=== PATIENT | male | born 2000 | race Caucasian/White ===

== ENCOUNTER 2023-09-22 07:10 | Emergency (ER) | payer OTHER, SELFPAY ==
[2023-09-22 07:14] VITALS: BP 119/80; BP 143/97; PULSE 105; PULSE 98; RESP 18; TEMP 36.7; O2SAT 100; O2SAT 99; BMI 26.8
[2023-09-22 07:22] LABS: Glucose, Whole Blood 447 mg/dL (60-115)
[2023-09-22 07:23] VITALS: BP 143/97; PULSE 98; RESP 18; TEMP 36.7; O2SAT 100
--- NOTE | 2023-09-22 07:25 | ED_ITS ---
HPI - General Adult General Chief complaint: General Medical Stated complaint: Hypoglycemia Time Seen by Provider: 09/22/23 07:13 Source: patient and old records reviewed Mode of arrival: ambulatory Limitations: no limitations History of Present Illness ED Provider: SHERIE RODAS narrative: 23 yo male with PMH of IDDM diagnosed age 7 still has glucometer notes that past few weeks ran out of his short acting sliding scale insulin and his long acting lantus 40 units at night due to insurance issues. He hasn't checked his sugar either. He has no complaints at this time. He has no n/v. He came after BS was checked yesterday and it was 500. He notes the pharmacy said his insulin would be ready Monday complaint: hyperglycemia Onset (ago): week(s) (3) Radiation: non-radiation Severity: moderate Relieving factors: none Exacerbating factors: eating Associated symptoms: denies other symptoms Treatments prior to arrival: none Related Data Previous Rx's ?Medication ?Instructions ?Recorded insulin glargine 100 unit/mL 40 unit (0.4 mL) subcut DAILY #10 09/22/23 subcutaneous solution (Lantus mL U-100 Insulin) Allergies Allergy/AdvReac Type Severity Reaction Status Date / Time shellfish derived Allergy Severe Anaphylaxis Verified 09/22/23 07:23 Review of Systems 2 Review of Systems: Constitutional : No Fever, No Chills, No Fatigue ENT/Mouth : No sore throat, No Rhinorrhea Eyes: No Eye Pain, No Swelling, No Redness Cardiovascular : No Chest Pain, No SOB, No Dyspnea on Exertion Respiratory : No Cough, No Sputum Gastrointestinal : No Nausea, No Vomiting, No Diarrhea, No abdominal Pain Genitourinary : No Dysuria, No Urinary Frequency, Musculoskeletal : No joint pain, No Myalgias, No Joint Swelling Skin : No Skin Lesions, No rash Neuro : No Weakness, No Numbness, No Dizziness, no Headache Psych : No Anxiety/Panic, No Depression Endocrine : pos Polyuria, pos Polydipsia All other systems reviewed and are negative [facility] Past Medical History Attestation statement: The following information was validated with the patient. Source: old records reviewed Medical History Type 1 diabetes Social History Social History (Updated 09/22/23 @ 07:29 by Jada Espinal DO) Patient Tobacco Use Status: Never used Tobacco Advance Directives: No Advance Directives Information Provided: No Do you have a plan to hurt others: No Plan Physical Exam ED Vital Signs: Vital Signs - 24 hr 09/22/23 07:14 09/22/23 07:23 Temperature 98.0 F 98.0 F Pulse Rate 98 98 Respiratory Rate 18 18 Blood Pressure 143/97 H 143/97 H Pulse Oximetry 100 100 Oxygen Delivery Method Room Air Room Air BMI result Body Mass Index 26.8 Appearance: Alert. Oriented X3. No acute distress. Eyes: Pupils equal, round and reactive to light. ENT: Pharynx normal. Neck: Normal inspection. Neck supple. CVS: Normal heart rate and rhythm. Pulses normal. Respiratory: No respiratory distress. Breath sounds normal. Abdomen: Soft and nontender. Skin: Skin warm and dry. Normal skin color. Normal skin turgor. Extremities: No lower extremity edema. No calf ttp Neuro: Oriented X 3. No motor deficit. No sensory deficit. Medications Administered Discontinued Medications Generic Name Dose Route Start Last Admin Trade Name Charbelq PRN Reason Stop Dose Admin Lactated Ringer's 1,000 mls @ 999 mls/hr 09/22/23 07:20 09/22/23 07:44 Lr IV 09/22/23 08:20 999 mls/hr .Q1H1M ONE Administration Insulin Human Regular 10 unit 09/22/23 07:20 09/22/23 07:50 Insulin Regular, Human 100 Unit/Ml 10 Ml Vial IVPUSH 09/22/23 07:21 10 unit ONCE ONE Administration Medical Decision Making Medical Decision Making [facility] Narrative: 23 yo male with PMH of IDDM dx at age 7 non compliant with insulin SS and long acting x 3 weeks at this time will need basic labs and start on IV insulin and then discussed he can go to [facility] to get insulin until he gets his script he looks non toxic low susp for DKA. Differential Diagnosis Differential Diagnoses: The differential diagnosis associated with the presentation includes hyperglycemia Admission/Observation Consideration of admission/observation: Escalation of care including admission/observation considered BS down not in DKA stable for DC Lab Data [facility] Lab Attestation statement: I reviewed the patient's lab results. 09/22/23 07:30 09/22/23 07:30 Labs: Lab Results 07/12/24 07/12/24 07/12/24 Range/Units 07:19 07:30 07:32 WBC 8.1 (4.8-10.8) X10*3/uL RBC 5.60 (4.60-5.80) X10*6/uL Hgb 16.3 (14.0-18.0) g/dl Hct 44.7 (42.0-52.0) % MCV 79.8 L (80.0-98.0) fL MCH 29.1 (27.0-33.0) pg MCHC 36.5 H (31.0-36.0) g/dl RDW 11.6 (11.0-16.0) % Plt Count 262 (160-400) X10*3/uL MPV 10.1 (9.4-12.4) fL Immature Gran % (Auto) 0.2 (0.0-0.4) % Neut % (Auto) 56.2 (45-73) % Lymph % (Auto) 34.4 (20-40) % [place] % (Auto) 7.3 (2-11) % Eos % (Auto) 1.5 (0-4) % Baso % (Auto) 0.4 (0-2) % Lymph # (Auto) 2.8 (1.2-4.9) X10*3/uL [place] # (Auto) 0.6 (0.1-1.2) X10*3/uL Eos # (Auto) 0.1 (0.0-0.4) X10*3/uL Baso # (Auto) 0.0 (0.0-0.2) X10*3/uL Abs Immat Gran (auto) 0.02 (0.00-0.03) X10*3/uL Absolute Neuts (auto) 4.6 (2.0-8.3) x10*3/uL Absolute Nucleated RBC 0.000 (0.0-0.012) X10*3/uL Nucleated RBC % (auto) 0.0 (0.0-0.2) /100WBC VBG pH 7.38 (7.32-7.43) VBG pCO2 52 mmHg VBG pO2 45 mmHg VBG HCO3 31 H (22-26) mmol/L VBG O2 Saturation 72.0 % VBG Base Excess 4.7 mmol/L Sodium 134 L (135-145) mmol/L Potassium 4.0 (3.3-5.1) mmol/L Chloride 97 (96-108) mmol/L Carbon Dioxide 27 (22-29) mmol/L Anion Gap 14 (12-20) BUN 13 (9-16) mg/dL Creatinine 1.08 (0.5-1.4) mg/dL Estim Creat Clear Calc 94.3 Estimated GFR > 60 POC Glucose 447 H* (60-115) mg/dL Random Glucose 508 H* (60-115) mg/dL Calcium 9.7 (8.4-10.2) mg/dL Magnesium 1.8 (1.6-2.6) mg/dL Total Bilirubin 0.4 (0.0-1.0) mg/dL Direct Bilirubin 0.1 (0.0-0.5) mg/dL AST 33 (5-37) U/L ALT 91 H (0-40) U/L Alkaline Phosphatase 92 (39-117) U/L Total Protein 6.8 (6.5-8.0) g/dL Albumin 3.9 (3.5-5.0) g/dL Lipase 44 (8-78) U/L Urine Color Urine Appearance Urine pH (5.0-9.0) Ur Specific [place] (1.005-1.025) Urine Protein (Neg-Trace) mg/dL Urine Glucose (UA) (Negative) mg/dL Urine Ketones (Negative) mg/dL Urine Blood (Negative) Urine Nitrite (Negative) Ur Leukocyte Esterase (Negative) Urine RBC (0-2) /HPF Urine WBC (0-5) /HPF Ur Squamous Epith Cells (0-2) /HPF Urine Bacteria (None Seen) Hyaline Casts (0-2) /LPF 09/22/23 Range/Units 07:42 WBC (4.8-10.8) X10*3/uL RBC (4.60-5.80) X10*6/uL Hgb (14.0-18.0) g/dl Hct (42.0-52.0) % MCV (80.0-98.0) fL MCH (27.0-33.0) pg MCHC (31.0-36.0) g/dl RDW (11.0-16.0) % Plt Count (160-400) X10*3/uL MPV (9.4-12.4) fL Immature Gran % (Auto) (0.0-0.4) % Neut % (Auto) (45-73) % Lymph % (Auto) (20-40) % [place] % (Auto) (2-11) % Eos % (Auto) (0-4) % Baso % (Auto) (0-2) % Lymph # (Auto) (1.2-4.9) X10*3/uL [place] # (Auto) (0.1-1.2) X10*3/uL Eos # (Auto) (0.0-0.4) X10*3/uL Baso # (Auto) (0.0-0.2) X10*3/uL Abs Immat Gran (auto) (0.00-0.03) X10*3/uL Absolute Neuts (auto) (2.0-8.3) x10*3/uL Absolute Nucleated RBC (0.0-0.012) X10*3/uL Nucleated RBC % (auto) (0.0-0.2) /100WBC VBG pH (7.32-7.43) VBG pCO2 mmHg VBG pO2 mmHg VBG HCO3 (22-26) mmol/L VBG O2 Saturation % VBG Base Excess mmol/L Sodium (135-145) mmol/L Potassium (3.3-5.1) mmol/L Chloride (96-108) mmol/L Carbon Dioxide (22-29) mmol/L Anion Gap (12-20) BUN (9-16) mg/dL Creatinine (0.5-1.4) mg/dL Estim Creat Clear Calc Estimated GFR POC Glucose (60-115) mg/dL Random Glucose (60-115) mg/dL Calcium (8.4-10.2) mg/dL Magnesium (1.6-2.6) mg/dL Total Bilirubin (0.0-1.0) mg/dL Direct Bilirubin (0.0-0.5) mg/dL AST (5-37) U/L ALT (0-40) U/L Alkaline Phosphatase (39-117) U/L Total Protein (6.5-8.0) g/dL Albumin (3.5-5.0) g/dL Lipase (8-78) U/L Urine Color Yellow Urine Appearance Clear Urine pH 5.5 (5.0-9.0) Ur Specific [place] >= 1.030 H (1.005-1.025) Urine Protein Trace (Neg-Trace) mg/dL Urine Glucose (UA) >=1000 H (Negative) mg/dL Urine Ketones 15 (Negative) mg/dL Urine Blood Small (1+) H (Negative) Urine Nitrite Negative (Negative) Ur Leukocyte Esterase Small (1+) H (Negative) Urine RBC 0-2 (0-2) /HPF Urine WBC 11-20 (0-5) /HPF Ur Squamous Epith Cells 0-2 (0-2) /HPF Urine Bacteria Trace (None Seen) Hyaline Casts 0-2 (0-2) /LPF Independent Historian Clinical information obtained from an independent historian. History obtained from or confirmed by: EMS Prescription Management I considered prescription management with: Other (insulin) Critical Care Time Critical Care Time Critical Care Time: Yes Total Critical Care Time: 35 Attestation: IVF, IV insulin, repeat glucose checks, review of records I attest to this time spent taking care of the patient Discharge Plan Discharge Clinical Impression: Acute hyperglycemia Patient Disposition: Home, Self-Care Instructions: Diabetic Hyperglycemia (ED) Additional Instructions: follow up with your pharmacy in regards to your insulin will try to bridge with short prescription over the weekend return to the ED for any worsening symptoms or concerns Prescriptions: New insulin glargine [Lantus U-100 Insulin] 100 unit/mL solution 40 unit subcut DAILY Qty: 10 0RF Stand Alone Forms: Work/School Release Print Language: Brazilian
[2023-09-22 07:35] LABS: MANUAL DIFF FLAG NO
[2023-09-22 07:37] LABS: Basophils Percent Auto 0.4 % (0-2); Eosinophils Absolute Auto 0.1 X10*3/uL (0.0-0.4); Eosinophils Percent Auto 1.5 % (0-4); Hematocrit 44.7 % (42.0-52.0); Hemoglobin 16.3 g/dl (14.0-18.0); Imm Gran Abs Auto 0.02 X10*3/uL (0.00-0.03); Imm Gran Pct Auto 0.2 % (0.0-0.4); Lymphocytes Absolute Auto 2.8 X10*3/uL (1.2-4.9); Lymphocytes Percent Auto 34.4 % (20-40); Mean Corpuscular HGB Conc 36.5 g/dl (31.0-36.0); Mean Corpuscular Hemoglobin 29.1 pg (27.0-33.0); Mean Corpuscular Volume 79.8 fL (80.0-98.0); Mean Platelet Volume 10.1 fL (9.4-12.4); Monocytes Absolute Auto 0.6 X10*3/uL (0.1-1.2); Monocytes Percent Auto 7.3 % (2-11); Neutrophils Absolute Auto 4.6 x10*3/uL (2.0-8.3); Neutrophils Percent Auto 56.2 % (45-73); Platelet Count 262 X10*3/uL (160-400); Red Cell Distribution Width 11.6 % (11.0-16.0); White Blood Count 8.1 X10*3/uL (4.8-10.8)
[2023-09-22 07:38] LABS: Venous Blood Gas Refer to POC result
[2023-09-22 07:39] LABS: VBG Base Excess 4.7 mmol/L; VBG HCO3 31 mmol/L (22-26); VBG pCO2 52 mmHg; VBG pH 7.38 (7.32-7.43); VBG pO2 45 mmHg
[2023-09-22] MEDS: Lactated Ringers 1,000 ML 999 ML IV (07:44)
[2023-09-22] MEDS: Insulin Regular, Human 100 UNIT/ML 10 ML VIAL 10 UNIT IVPUSH (07:50)
[2023-09-22 07:55] LABS: Alanine Aminotransferase 91 U/L (0-40); Albumin Level 3.9 g/dL (3.5-5.0); Alkaline Phosphatase 92 U/L (39-117); Anion Gap 14 (12-20); Aspartate Amino Transferase 33 U/L (5-37); Bilirubin Direct 0.1 mg/dL (0.0-0.5); Bilirubin Total 0.4 mg/dL (0.0-1.0); Blood Urea Nitrogen 13 mg/dL (9-16); Calcium 9.7 mg/dL (8.4-10.2); Carbon Dioxide 27 mmol/L (22-29); Chloride 97 mmol/L (96-108); Creatinine Clr Calc Pharmacy 94.3; Estimated Glomerular Filt Rate > 60; Glucose Random 508 mg/dL (60-115); Lipase 44 U/L (8-78); Magnesium 1.8 mg/dL (1.6-2.6); Sodium 134 mmol/L (135-145); Total Protein 6.8 g/dL (6.5-8.0)
[2023-09-22 07:55] LABS: Appearance Urine Clear; Color Urine Yellow; Glucose Urine UA >=1000 mg/dL (Negative); Leukocyte Esterase Urine Small (1+) (Negative); Nitrite Urine Negative (Negative); PH 5.5 (5.0-9.0); Specific Gravity - Urine >= 1.030 (1.005-1.025); UMIC TRIGGER UACC YES; Urine Blood Small (1+) (Negative); Urine Ketones 15 mg/dL (Negative); Urine Protein Trace mg/dL (Neg-Trace)
--- OUTSIDE RECORDS SUMMARY | 2023-09-22 07:57 | XMS_ITS | Continuity of Care Document ---
Author Organization [facility] Address [address] [place] [address]- Care Team Providers Care Crew Lead Name Role Phone Sanjeev Marie DO Primary Care Physician [facility]counter [facility] Date(s): 08/24/21 - 09/23/21 [facility] [address] [place] [id number] Attending Physician: Chris Cardona Admitting Physician: AdmtrChris Referring Physician: Admtr ArSuzette Allergies, Adverse Reactions, Alerts Substance Reaction Severity Status Shrimp Active Immunizations Given and Recorded Vaccine Date Status Refusal Reason SARS-CoV-2 (COVID-19) mRNA BNT-162b2 vac 08/22/20 Recorded SARS-CoV-2 (COVID-19) mRNA BNT-162b2 vac 08/01/20 Recorded influenza virus vaccine, inactivated 10/20/19 Esau rded influenza virus vaccine, inactivated 12/09/18 Esau rded influenza virus vaccine, inactivated 05/09/18 Give n influenza virus vaccine, inactivated 11/25/09 Give n tetanus/diphtheria/pertussis, acel(Tdap) 10/08/19 Recorded tetanus/diphtheria/pertussis, acel(Tdap) 06/12/09 Given Afluria (oldterm) 05/09/18 Recorded Meningococcal Conjugate Vaccine 09/04/14 Given Meningococcal Conjugate Vaccine 10/25/11 Given Human Papillomavirus Vaccine 09/04/14 Given Human Papillomavirus Vaccine 10/25/11 Given Human Papillomavirus Vaccine 07/24/10 Given Hepatitis A Pediatric Vaccine 08/03/10 Given Hepatitis A Pediatric Vaccine 09/17/08 Given Varicella Virus Vaccine 09/17/08 Given Varicella Virus Vaccine 03/15/99 Given Poliovirus Vaccine, Inactivated 04/09/02 Given Poliovirus Vaccine, Inactivated 12/06/99 Given Poliovirus Vaccine, Inactivated 98 Given Poliovirus Vaccine, Inactivated 98 Given Measles/Mumps/Rubella Virus Vaccine 04/09/02 Given Measles/Mumps/Rubella Virus Vaccine 06/25/99 Given diphtheria/tetanus/pertussis, acel(DTaP) 04/09/02 Given diphtheria/tetanus/pertussis, acel(DTaP) 12/05/00 Given diphtheria/tetanus/pertussis, acel(DTaP) 98 Given diphtheria/tetanus/pertussis, acel(DTaP) 98 Given diphtheria/tetanus/pertussis, acel(DTaP) 98 Given Haemophilus B Conj Vaccine (oldterm) 06/25/99 Give n Haemophilus B Conj Vaccine (oldterm) 98 Give n Haemophilus B Conj Vaccine (oldterm) 98 Give n Haemophilus B Conj Vaccine (oldterm) 98 Give n hepatitis B pediatric vaccine 06/25/99 Given hepatitis B pediatric vaccine 98 Given hepatitis B pediatric vaccine 98 Given Medications Admelog SoloStar 100 units/mL injectable solution See Instructions, INJECT 10-20 UNITS SUBCUTANEOULSY WITH MEALS, # 15 Unknown, 1 Refills, 01/14/21 9:48:00 EDT, [facility]/pharmacy #[id number], 168.2, cm, 01/14/21 9:03:00 EDT, Height, 104.1, kg, 03/20/19 15:27:00 EST, Dry Weight Start Date: 01/14/21 Status: Ordered Alcohol Pads See Instructions, # 100 each, Refills 11, Tot. Refills 11, Maintenance, Use as directed to check finger stick blood sugars three times per day Dx: E11.9 Duration: Lifetime, 08/17/21 9:52:00 EDT, Supply, 168.2, cm, 08/16/21 16:33:00 EDT, Height, 85.3... Start Date: 08/17/21 Status: Ordered atorvastatin 80 mg oral tablet 1 tablet, By Mouth, Daily, NEED FOLLOW UP APPT., # 30 tablet, 3 Refills, 07/20/21 15:42:00 [facility] 168.2, cm, 07/02/21 9:27:00 EDT, Height, 85.3, kg, 03/30/21 21:26:00 EST, Dry Weight Start Date: 07/20/21 Status: Ordered BD noel pen needles 4mm x 32G BD noel pen needles 4mm x 32G, See Instructions, # 450 each, Refills 3, Tot. Refills 3, Maintenance, For management of insulin dependent diabetes - administer insulin 5x/day: dispense 90 day supply, 02/27/19 9:06:00 EST, Compound, 168.8, cm, 02/20/19... Start Date: 02/27/19 Status: Ordered Colesevelam Hydrochloride 625 mg oral tablet 3 tablet, By Mouth, 2 times a day, *NEED TO SCHEDULE AN APPT*., # 180 tablet, 0 Refills, [facility]ORE [id number], 168.2, cm, 04/27/21 10:25:00 EST, Height, 85.3, kg, 03/30/21 21:26:00 EST, Dry Weight Start Date: 06/20/21 Status: Ordered dulaglutide 1.5 mg/0.5 mL subcutaneous solution 0.5 mL = 1.5 mg, Subcutaneous Injection, Every week, rotate injection sites, # 2 mL, 4 Refills, Maintenance, 04/06/21 8:28:00 EST, Solution, [facility]/pharmacy #[id number], note dose increase, 168.2, cm, 04/06/21 8:12:00 EST, Height, 85.3, kg, 03/30/21 21:26:00 E... Start Date: 04/06/21 Status: Ordered Freestyle Lancets See Instructions, # 100 each, Refills 11, Tot. Refills 11, Maintenance, Use as directed to check finger stick blood sugars three times per day Dx: E11.9 Duration: Lifetime, 08/17/21 9:52:00 EDT, Compound, 168.2, cm, 08/16/21 16:33:00 EDT, Height, 85... Start Date: 08/17/21 Status: Ordered Freestyle Lite Monitor See Instructions, # 1 each, Refills 0, Tot. Refills 0, Maintenance, Use to monitor blood glucose levels. E10.9, 01/10/20 10:25:00 EDT, Supply, 168.2, cm, 01/09/20 8:57:00 EDT, Height, 104.1, kg, 03/20/19 15:27:00 EST, Dry Weight Start Date: 01/10/20 Status: Ordered Freestyle Lite Test Strips See Instructions, # 100 each, Refills 11, Tot. Refills 11, Maintenance, Use as directed to check finger stick blood sugars three times per day Dx: E11.9 Duration: Lifetime, 08/17/21 9:51:00 EDT, Compound, 168.2, cm, 08/16/21 16:33:00 EDT, Height, 85... Start Date: 08/17/21 Status: Ordered Glucagon Emergency Kit for Low Blood Sugar 1 mg injection See Instructions, Use as directed for type 1 diabetes. One for home and one for school., # 2 kit, 5Refills, Soft Stop, 05/27/14 11:29:09, Use as directed for type 1 diabetes. One for home and one for school. Start Date: 05/27/14 Status: Ordered Home Blood Pressure Monitor See Instructions, # 1 each, Refills 0, Tot. Refills 0, Maintenance, Home Blood Pressure Monitor Useas directed to check blood pressure at least one hour after taking medications HCTZ-Lisinopril 25-20mg 1 tab PO daily Dx: I10 (Hypertension) Durati... Start Date: 04/28/21 Status: Ordered hydrochlorothiazide-lisinopril 25 mg-20 mg oral tablet 1 tablet, By Mouth, Daily, # 30 each, 3 Refills, Maintenance, 07/20/21 15:42:00 EDT, [facility], 1 tablet By Mouth Daily, 168.2, cm, 07/02/21 9:27:00 EDT, Height, 85.3, kg, 03/30/21 21:26:00 EST, Dry Weight Start Date: 07/20/21 Status: Ordered Insulin Syringe, BD Ultra-Fine 0.5 cc 31 G x 8 mm (5/16in) See Instructions, # 100 each, Refills 11, Tot. Refills 11, Maintenance, diabetes, 5 times/daily, 02/27/19 9:06:00 EST, Compound, 168.8, cm, 02/20/19 13:48:00 EST, Height, 98.2, kg, 02/20/19 13:47:00 EST, Dry Weight Start Date: 02/27/19 Status: Ordered Lantus Solostar Pen 100 units/mL subcutaneous solution = 20 units, Subcutaneous Injection, Daily, # 12 mL, 5 Refills, Maintenance, 04/06/21 8:30:00 EST, Solution, [id number], pt states was only taking 20 units a day. will fill at this dose. Note dose change., 168.2, cm, 04/06/21 8:12:00 EST, Heigh... Start Date: 04/06/21 Status: Ordered metFORMIN 500 mg oral tablet 2 tablet = 1,000 mg, By Mouth, 2 times a day, # 120 tablet, 3 Refills, Maintenance, 04/27/21 10:50:00 EST, [id number], 168.2, cm, 04/27/21 10:25:00 EST, Height, 85.3, kg, 03/30/21 21:26:00 EST, Dry Weight Start Date: 04/27/21 Stop Date: 08/25/21 Status: Ordered naproxen 500 mg oral tablet 1 tablet = 500 mg, By Mouth, 2 times a day, # 60 tablet, 0 Refills, Maintenance, 04/15/21 9:41:00 EST, Tablet, [id number], Partial fill upon patient request if the prescription is for a schedule II opioid drug., 168.2, cm, 04/15/21 8:37:00 EST... Start Date: 04/15/21 Status: Ordered NovoLOG FlexPen 100 units/mL subcutaneous solution See Instructions, INJECT 10-20 UNITS SUBCUTANEOULSY WITH MEALS, # 15 mL, 4 Refills, Maintenance, 04/06/21 8:32:00 EST, [id number], dispense formulary equivalent, 168.2, cm, 04/06/21 8:12:00 EST, Height, 85.3, kg, 03/30/21 21:26:00 EST, Dry Weight Start Date: 04/06/21 Status: Ordered Pen [place], 31 G x 5 mm BD Ultra Fine III See Instructions, # 100 each, Refills 5, Tot. Refills 5, Maintenance, use as directed for Type 2 Diabetes Mellitus 4 times daily, 04/21/21 14:13:00 EST, Supply, 168.2, cm, 04/15/21 8:37:00 EST, Height, 85.3, kg, 03/30/21 21:26:00 EST, Dry Weight Start Date: 04/21/21 Stop Date: 10/18/21 Status: Ordered tslim and dexcom g6 tslim and dexcom g6, Refills 0, Maintenance, 04/13/18 14:35:10 EST, Compound Start Date: 04/13/18 Status: Ordered Problem List Condition Effective Dates Status Health Status Inform ant Back pain(Confirmed) Active Childhood obesity(Confirmed) Active Diabetes Mellitus(Confirmed) 10/25/11 Active Essential hypertension(Confirmed) Active Hyperlipidemia LDL goal < 100(Confirmed) Active Social History Social History Type Response Smoking Status Never smoker entered on: 02/22/17 Sex
--- OUTSIDE RECORDS SUMMARY | 2023-09-22 07:57 | XMS_ITS | Continuity of Care Document ---
Author Organization [facility] Address [address] [place] [address]- Care Team Providers Care Hide House Supervisor Name Role Phone Mayra HEARN, Gerry Beaver Primary Care Physician [phone] Encounter [facility] Date(s): 04/28/21 - 06/13/21 [facility] [address] [place] [address]- Attending Physician: Rolando Omer MD Admitting Physician: Rolando Omer MD Allergies, Adverse Reactions, Alerts Substance Reaction Severity Status Shrimp Active Immunizations Given and Recorded Vaccine Date Status Refusal Reason SARS-CoV-2 (COVID-19) mRNA BNT-162b2 vac 08/22/20 Recorded SARS-CoV-2 (COVID-19) mRNA BNT-162b2 vac 08/01/20 Recorded influenza virus vaccine, inactivated 10/20/19 Esau rded influenza virus vaccine, inactivated 12/09/18 Esau rded influenza virus vaccine, inactivated 05/09/18 Give n influenza virus vaccine, inactivated 11/25/09 Give n Afluria (oldterm) 05/09/18 Recorded Meningococcal Conjugate Vaccine 09/04/14 Given Meningococcal Conjugate Vaccine 10/25/11 Given Human Papillomavirus Vaccine 09/04/14 Given Human Papillomavirus Vaccine 10/25/11 Given Human Papillomavirus Vaccine 07/24/10 Given Hepatitis A Pediatric Vaccine 08/03/10 Given Hepatitis A Pediatric Vaccine 09/17/08 Given tetanus/diphtheria/pertussis, acel(Tdap) 06/12/09 Given Varicella Virus Vaccine 09/17/08 Given Varicella [...] 15 Unknown, 1 Refills, 01/14/21 9:48:00 EDT, [facility]/pharmacy #[id number], 168.2, cm, 01/14/21 9:03:00 EDT, Height, 104.1, kg, 03/20/19 15:27:00 EST, Dry Weight Start Date: 01/14/21 Status: Ordered atorvastatin 80 mg oral tablet 1 tablet, By Mouth, Daily, Please schedule a follow up appointment with endocrinology for further refills, # 30 tablet, 1 Refills, Maintenance, 04/27/21 10:49:00 EST, [facility]/pharmacy #[id number], 168.2, cm, 04/27/21 10:25:00 EST, Height, 85.3, kg, 03/30/21 21:... Start Date: 04/27/21 Status: Ordered BD noel pen needles 4mm [...] tablet, By Mouth, 2 times a day, pt needs to schedule an appt for further refills, # 180 tablet, 0 Refills, Maintenance, 04/27/21 10:49:00 EST, [facility]/pharmacy #[id number], 168.2, cm, 04/27/21 10:25:00 EST,Height, 85.3, kg, 03/30/21 21:26:00 EST, Dry Weight Start Date: 04/27/21 Status: Ordered dulaglutide 1.5 mg/0.5 mL subcutaneous solution 0.5 mL = 1.5 mg, Subcutaneous Injection, Every week, rotate injection sites, # 2 mL, 4 Refills, Maintenance, 04/06/21 8:28:00 EST, Solution, [facility]/pharmacy #[id number], note dose increase, 168.2, cm, 04/06/21 8:12:00 EST, Height, 85.3, kg, 03/30/21 21:26:00 E... Start Date: 04/06/21 Status: Ordered Freestyle Lancets See Instructions, # 150 each, Refills 11, Tot. Refills 11, Maintenance, Use to monitor blood glucose levels 5x per day. E10.9. 30 day supply., 01/10/20 10:25:00 EDT, Compound, 168.2, cm, 01/09/20 8:57:00 EDT, Height, 104.1, kg, 03/20/19 15:27:00 EST,... Start Date: 01/10/20 Status: Ordered Freestyle Lite Monitor See Instructions, # 1 each, Refills 0, Tot. Refills 0, Maintenance, Use to monitor blood glucose levels. E10.9, 01/10/20 10:25:00 EDT, Supply, 168.2, cm, 01/09/20 8:57:00 EDT, Height, 104.1, kg, 03/20/19 15:27:00 EST, Dry Weight Start Date: 01/10/20 Status: Ordered Freestyle Lite Test Strips See Instructions, # 150 each, Refills 11, Tot. Refills 11, Maintenance, Use to monitor blood glucose levels 5x per day. E10.9. 30 day supply, 01/10/20 10:25:00 EDT, Compound, 168.2, cm, 01/09/20 8:57:00 EDT, Height, 104.1, kg, 03/20/19 15:27:00 EST, D... Start Date: 01/10/20 Status: Ordered Glucagon Emergency Kit for Low [...] Daily, # 30 each, 3 Refills, Maintenance, 04/27/21 10:49:00 EST, [facility]/pharmacy #[id number], 1 tablet By Mouth Daily, 168.2, cm, 04/27/21 10:25:00 EST, Height, 85.3, kg, 03/30/21 21:26:00EST, Dry Weight Start Date: 04/27/21 Status: Ordered Insulin Syringe, BD Ultra-Fine 0.5 [...] Weight Start Date: 04/06/21 Status: Ordered Pen [place], 31 G x 5 mm BD Ultra [...]
--- OUTSIDE RECORDS SUMMARY | 2023-09-22 07:57 | XMS_ITS | Continuity of Care Document ---
Author Organization [facility] Address [address] [place] [address]- Care Team Providers Care Gastroenterology Teacher Name Role Phone Mayra HEARN, Gerry Beaver Primary Care Physician [facility] Date[facility]s): 02/03/21 - 03/05/[address] [address]- Attending Physician: Admtr, Ar8 Admitting Physician: Admtr, Ar8 Referring Physician: Admtr, Ar8 Allergies, Adverse Reactions, Alerts Substance Reaction Severity [...] 15 Unknown, 1 Refills, 01/14/21 9:48:00 EDT, [facility]/pharmacy #[id number], 168.2, cm, 01/14/21 9:03:00 EDT, Height, 104.1, kg, 03/20/19 15:27:00 EST, Dry Weight Start Date: 01/14/21 Status: Ordered atorvastatin 80 mg oral tablet 1 tablet, By Mouth, Daily, Please schedule a follow up appointment with endocrinology for further refills, # 30 tablet, 1 Refills, Maintenance, 12/05/19 5:07:00 EDT, [facility]/pharmacy #[id number], 168.2, cm, 03/20/19 15:27:00 EST, Height, 104.1, kg, 03/20/19 15:... Start Date: 12/05/19 Status: Ordered BD noel pen needles 4mm [...] refills, # 180 tablet, 0 Refills, Maintenance, 12/17/19 9:04:00 EDT, [facility]/pharmacy #[id number], 168.2, cm, 03/20/19 15:27:00 EST, Height, 104.1, kg, 03/20/19 15:27:00 EST, Dry Weight Start Date: 12/17/19 Status: Ordered Freestyle Lancets See Instructions, # [...] for school. Start Date: 05/27/14 Status: Ordered hydrochlorothiazide-lisinopril 25 mg-20 mg oral tablet 1 tablet, By Mouth, Daily, # 30 each, 3 Refills, Maintenance, 02/13/20 9:45:00 EST, [id number], 1 tablet By Mouth Daily, 168.2, cm, 01/09/20 8:57:00 EDT, Height, 104.1, kg, 03/20/19 15:27:00 EST, Dry Weight Start Date: 02/13/20 Status: Ordered Insulin Syringe, BD Ultra-Fine 0.5 cc 31 G x 8 mm (5/16in) See Instructions, # 100 each, Refills 11, Tot. Refills 11, Maintenance, diabetes, 5 times/daily, 02/27/19 9:06:00 EST, Compound, 168.8, cm, 02/20/19 13:48:00 EST, Height, 98.2, kg, 02/20/19 13:47:00 EST, Dry Weight Start Date: 02/27/19 Status: Ordered Lantus Solostar Pen 100 units/mL subcutaneous solution = 70 units, Subcutaneous Injection, Daily, # 30 mL, 1 Refills, Maintenance, 01/14/21 9:48:00 EDT, Solution, [id number], 168.2, cm, 01/14/21 9:03:00 EDT, Height, 104.1, kg, 03/20/19 15:27:00 EST, Dry Weight Start Date: 01/14/21 Status: Ordered metFORMIN 500 mg oral tablet 2 tablet = 1,000 mg, By Mouth, 2 times a day, # 120 tablet, 3 Refills, Maintenance, 01/14/21 9:48:00 EDT, [id number], 168.2, cm, 01/14/21 9:03:00 EDT, Height, 104.1, kg, 03/20/19 15:27:00 EST, Dry Weight Start Date: 01/14/21 Stop Date: 05/14/21 Status: Ordered Tresiba FlexTouch 100 units/mL subcutaneous solution = 45 units, Subcutaneous Infusion, Daily, Type 2 diabetes 10.65, # 1 each, 6 Refills, Maintenance, 02/20/19 16:11:27 EST, 168.8, cm, 02/20/19 13:48:43 EST, Height, 98.2, kg, 02/20/19 13:47:40 EST, Dry Weight Start Date: 02/20/19 Stop Date: 09/18/19 Status: Ordered Trulicity Pen 0.75 mg/0.5 mL subcutaneous solution 0.5 mL = 0.75 mg, Subcutaneous Injection, Every week, rotate injection sites, # 2 mL, 0 Refills, Maintenance, 01/29/21 10:52:00 EST, Solution, [facility]/pharmacy #[id number], Partial fill upon patient request ifthe prescription is for a schedule II opioid drug.,... Start Date: 01/29/21 Status: Ordered tslim and dexcom g6 tslim and dexcom g6, Refills 0, Maintenance, 04/13/18 14:35:10 EST, Compound Start Date: 04/13/18 Status: Ordered Problem List Condition Effective Dates Status Health Status Inform ant Childhood obesity(Confirmed) Active Diabetes Mellitus(Confirmed) 10/25/11 Active Essential hypertension(Confirmed) Active Hyperlipidemia LDL goal < 100(Confirmed) Active Social History Social History Type Response Smoking Status Never smoker entered on: 02/22/17 Sex
--- OUTSIDE RECORDS SUMMARY | 2023-09-22 07:57 | XMS_ITS | Continuity of Care Document ---
Author Organization [facility] Address [address] [place] [address]- Care Team Providers Care Administration Intern Name Role Phone Mayra HEARN, Gerry Beaver Primary Care Physician [facility] Date[facility]s): 01[facility]10/20 - 03/14/20 [facility] [address] [place] [address] Attending Physician: Juan Ramírez MD Admitting Physician: Juan Ramírez MD Allergies, Adverse Reactions, Alerts Substance Reaction Severity Status Shrimp Active Immunizations Given and Recorded Vaccine Date Status Refusal Reason influenza virus vaccine, inactivated 05/09/18 Give n [...] WITH MEALS, # 15 Unknown, 1 Refills, Maintenance, [id number], 168.2, cm, 01/09/20 8:57:00 EDT, Height, 104.1, kg, 03/20/19 15:27:00 EST, Dry Weight Start Date: 03/05/20 Status: Ordered atorvastatin 80 mg oral tablet 1 tablet, By Mouth, Daily, Please schedule a follow up appointment with endocrinology for further refills, # 30 tablet, 1 Refills, Maintenance, 12/05/19 5:07:00 EDT, [facility]/pharmacy #[id number], 168.2, cm, 03/20/19 15:27:00 EST, Height, [...] tablet, 0 Refills, Maintenance, 12/17/19 9:04:00 EDT, [facility]/pharmacy #[id number], 168.2, cm, 03/20/19 15:27:00 EST, Height, 104.1, kg, 03/20/19 15:27:00 EST, Dry Weight Start Date: 12/17/19 Status: Ordered Diflucan 150 mg oral tablet 1 tablet = 150 mg, By Mouth, Once, # 1 tablet, 0 Refills, Soft Stop, 07/05/19 14:30:00 EDT, Tablet,[facility]/pharmacy #[id number], 168.2, cm, 03/20/19 15:27:00 EST, Height, 104.1, kg, 03/20/19 15:27:00 EST, DryWeight Start Date: 07/05/19 Status: Ordered Freestyle Lancets See Instructions, # [...] Solostar Pen 100 units/mL subcutaneous solution = 40 units, Subcutaneous Injection, Daily, # 30 mL, 1 Refills, Maintenance, 01/09/20 9:14:00 EDT, Solution, [id number], 168.2, cm, 01/09/20 8:57:00 EDT, Height, 104.1, kg, 03/20/19 15:27:00 EST, Dry Weight Start Date: 01/09/20 Status: Ordered metFORMIN 500 mg oral tablet 2 tablet = 1,000 mg, By Mouth, 2 times a day, # 120 tablet, 3 Refills, Maintenance, 02/13/20 9:44:00 EST, [id number], 168.2, cm, 01/09/20 8:57:00 EDT, Height, 104.1, kg, 03/20/19 15:27:00 EST, Dry Weight Start Date: 02/13/20 Stop Date: 06/12/20 Status: Ordered Tresiba FlexTouch 100 units/mL subcutaneous solution = 45 units, Subcutaneous Infusion, Daily, Type 2 diabetes 10.65, # 1 each, 6 Refills, Maintenance, 02/20/19 16:11:27 EST, 168.8, cm, 02/20/19 13:48:43 EST, Height, 98.2, kg, 02/20/19 13:47:40 EST, Dry Weight Start Date: 02/20/19 Stop Date: 09/18/19 Status: Ordered tslim and dexcom g6 tslim [...]
--- OUTSIDE RECORDS SUMMARY | 2023-09-22 07:57 | XMS_ITS | Continuity of Care Document ---
Author Organization [facility] Address [address] [place] [address]- Care Team Providers Care Photovoltaic Solar Cell Designer Name Role Phone Mayra HEARN, Gerry Beaver Primary Care Physician [facility]): 04/13/19 - 08/11/19 [facility] [address] [place] [address]- [facility] Attending Physician: Not on Staff, Attending MD Allergies, Adverse Reactions, Alerts Substance Reaction [...] B pediatric vaccine 98 Given Medications Admelog 100 units/mL injectable solution See Instructions, T2D max dose 150 units/day, # 10 mL, 5 Refills, Maintenance, 03/14/19 8:16:00 EST, [facility]/pharmacy #[id number], new order, 168.8, cm, 02/20/19 13:48:00 EST, Height, 98.2, kg, 02/20/19 13:47:00 EST, Dry Weight Start Date: 03/14/19 Status: Ordered atorvastatin 80 mg oral tablet 1 tablet = 80 mg, By Mouth, Daily, # 30 tablet, 6 Refills, Maintenance, 03/20/19 16:21:00 EST, Tablet, [facility]/pharmacy #[id number], 168.2, cm, 03/20/19 15:27:00 EST, Height, 104.1, kg, 03/20/19 15:27:00 EST, Dry Weight Start Date: 03/20/19 Status: Ordered BD noel pen needles 4mm x 32G BD noel pen needles 4mm x 32G, See Instructions, # 450 each, Refills 3, Tot. Refills 3, Maintenance, For management of insulin dependent diabetes - administer insulin 5x/day: dispense 90 day supply, 02/27/19 9:06:00 EST, Compound, 168.8, cm, 02/20/19... Start Date: 02/27/19 Status: Ordered Colesevelam Hydrochloride 625 mg oral tablet See Instructions, TAKE 3 TABLETS BY MOUTH TWICE A DAY, # 180 tablet, 5 Refills, Maintenance, 04/11/19 9:46:00 EST, [id number], 168.2, cm, 03/20/19 15:27:00 EST, Height, 104.1, kg, 03/20/19 15:27:00 EST, Dry Weight Start Date: 04/11/19 Status: Ordered Diflucan 150 mg oral tablet 1 tablet = 150 mg, By Mouth, Once, # 1 tablet, 0 Refills, Soft Stop, 07/05/19 14:30:00 EDT, [facility]t,[id number], 168.2, cm, 03/20/19 15:27:00 EST, Height, 104.1, kg, 03/20/19 15:27:00 EST, DryWeight Start Date: 07/05/19 Status: Ordered Freestyle Lancets See Instructions, # 200 each, Refills 11, Tot. Refills 11, Maintenance, diabetes/ testing 7 times/daily, 11/22/17 12:17:41 EDT, Compound Start Date: 11/22/17 Status: Ordered Freestyle Lite Test Strips See Instructions, # 200 each, Refills 3, Tot. Refills 3, Maintenance, type 1 diabetes testing 7 times/day, 04/10/19 15:45:00 EST, Compound, 168.2, cm, 03/20/19 15:27:00 EST, Height, 104.1, kg, 03/20/19 15:27:00 EST, Dry Weight Start Date: 04/10/19 Status: Ordered Glucagon Emergency Kit for Low [...] 1 tablet, By Mouth, Daily, # 30 tablet, 3 Refills, Maintenance, 08/06/19 15:10:00 EDT, [facility], 1 tablet By Mouth Daily, 168.2, cm, 03/20/19 15:27:00 EST, Height, 104.1, kg, 03/20/19 15:27:00 EST, Dry Weight Start Date: 08/06/19 Status: Ordered Insulin Syringe, BD Ultra-Fine 0.5 cc 31 G x 8 mm (5/16in) See Instructions, # 100 each, Refills 11, Tot. Refills 11, Maintenance, diabetes, 5 times/daily, 02/27/19 9:06:00 EST, Compound, 168.8, cm, 02/20/19 13:48:00 EST, Height, 98.2, kg, 02/20/19 13:47:00 EST, Dry Weight Start Date: 02/27/19 Status: Ordered metFORMIN 500 mg oral tablet 2 tablet = 1,000 mg, By Mouth, 2 times a day, # 120 tablet, 3 Refills, Maintenance, 02/20/19 16:09:15 EST, 168.8, cm, 02/20/19 13:48:43 EST, Height, 98.2, kg, 02/20/19 13:47:40 EST, Dry Weight Start Date: 02/20/19 Stop Date: 06/20/19 Status: Ordered OneTouch Verio Test Strips See Instructions, # 200 each, Refills 11, Tot. Refills 11, Maintenance, test Bg 6-7x's/day for T1D,06/16/17 14:40:02 EDT, Compound Start Date: 06/16/17 Status: Ordered Tresiba FlexTouch 100 units/mL subcutaneous [...]
--- OUTSIDE RECORDS SUMMARY | 2023-09-22 07:57 | XMS_ITS | Continuity of Care Document ---
Author Organization [facility] Address [address] [place] [address]- Care Team Providers Care Cattle Killer Name Role Phone Gerry Nunez MD Primary Care Physician [facility] Date(s): 03/22/21 - 04/29/21 [facility] [address] [place] [address]- Attending Physician: Farrukh CLAUDIO, Gabby Patton Admitting Physician: Gabby Chadwick NP Referring Physician: Gerry Nunez MD Allergies, Adverse Reactions, Alerts Substance Reaction [...] tablet, 1 Refills, Maintenance, 04/27/21 10:49:00 EST, [id number], 168.2, cm, 04/27/21 10:25:00 [...] tablet, 0 Refills, Maintenance, 04/27/21 10:49:00 EST, [facility]/pharmacy #1026, 168.2, cm, 04/27/21 10:25:00 EST,Height, [...] each, 3 Refills, Maintenance, 04/27/21 10:49:00 EST, [facility]/pharmacy #1026, 1 tablet By Mouth Daily, [...] 5 Refills, Maintenance, 04/06/21 8:30:00 EST, Solution, [facility]/pharmacy #1026, pt states was only taking 20 [...] 0 Refills, Maintenance, 04/15/21 9:41:00 EST, Tablet, [facility]/pharmacy #[id number], Partial fill upon patient request if [...] Weight Start Date: 04/06/21 Status: Ordered Pen [place], 31 G x 5 mm BD Ultra [...]
--- OUTSIDE RECORDS SUMMARY | 2023-09-22 07:57 | XMS_ITS | Continuity of Care Document ---
Author Organization [facility] Address [address] [place] [address]- Care Team Providers Care Stopper Maker Helper Name Role Phone Mayra HEARN, Gerry Beaver Primary Care Physician Encounter [facility] Date(s): 04/28/21 - 05/28/[address] [address]- Attending Physician: Not on Staff, Attending MD [...] 15 Unknown, 1 Refills, 01/14/21 9:48:00 EDT, [facility]/pharmacy #[id number], 168.2, cm, 01/14/21 9:03:00 EDT, Height, 104.1, kg, 03/20/19 15:27:00 EST, Dry Weight Start Date: 01/14/21 Status: Ordered atorvastatin 80 mg oral tablet 1 tablet, By Mouth, Daily, Please schedule a follow up appointment with endocrinology for further refills, # 30 tablet, 1 Refills, Maintenance, 04/27/21 10:49:00 EST, [facility]/pharmacy #[id number], 168.2, cm, 04/27/21 10:25:00 EST, [...] tablet, 0 Refills, Maintenance, 04/27/21 10:49:00 EST, [facility]/pharmacy #1026, 168.2, cm, 04/27/21 10:25:00 EST,Height, 85.3, kg, 03/30/21 21:26:00 EST, Dry Weight Start Date: 04/27/21 Status: Ordered dulaglutide 1.5 mg/0.5 mL subcutaneous solution 0.5 mL = 1.5 mg, Subcutaneous Injection, Every week, rotate injection sites, # 2 mL, 4 Refills, Maintenance, 04/06/21 8:28:00 EST, Solution, [facility]/pharmacy #[id number], note dose increase, 168.2, cm, [...] each, 3 Refills, Maintenance, 04/27/21 10:49:00 EST, [facility]/pharmacy #[id number], 1 tablet By Mouth Daily, [...] 0 Refills, Maintenance, 04/15/21 9:41:00 EST, Tablet, [facility]/pharmacy #[id number], Partial fill upon patient request [...] Weight Start Date: 04/06/21 Status: Ordered Pen [place], 31 G x 5 mm BD Ultra [...]
--- OUTSIDE RECORDS SUMMARY | 2023-09-22 07:57 | XMS_ITS | Continuity of Care Document ---
Author Organization [facility] Address [address] [place] [address]- Care Team Providers Care Health Concierge Name Role Phone Mayra HEARN, Gerry Beaver Primary Care Physician Encounter [facility] Date(s): 07/20/19 - 11/17/19 [facility] [address] [place] [address]- [facility] Attending Physician: Not on Staff, Attending MD [...] mL, 5 Refills, Maintenance, 03/14/19 8:16:00 EST, [facility]/pharmacy #[id number], new order, 168.8, cm, 02/20/19 13:48:00 EST, Height, 98.2, kg, 02/20/19 13:47:00 EST, Dry Weight Start Date: 03/14/19 Status: Ordered atorvastatin 80 mg oral tablet 1 tablet, By Mouth, Daily, # 30 tablet, 0 Refills, Maintenance, 11/11/19 8:45:00 EDT, [facility]/pharmacy #[id number], 168.2, cm, 03/20/19 15:27:00 EST, Height, 104.1, kg, 03/20/19 15:27:00 EST, Dry Weight Start Date: 11/11/19 Status: Ordered BD noel pen needles 4mm [...]
--- OUTSIDE RECORDS SUMMARY | 2023-09-22 07:57 | XMS_ITS | Continuity of Care Document ---
Author Organization [facility] Address [address] [place] [address]- Care Team Providers Care Wheel Truing Machine Tender Name Role Phone Sanjeev Marie DO Primary Care Physician Encounter [facility] Date(s): 07/04/22 - 08/20/22 [facility] [address] [place] [address]- Attending Physician: Rolando Omer MD Admitting Physician: [...] Status: Ordered atorvastatin 80 mg oral tablet See Instructions, TAKE 1 TABLET BY MOUTH DAILY 90 DAY SUPPLY, # 90 tablet, 0 Refills, Maintenance, 07/04/22 15:04:00 EDT, [facility], 168.2, cm, 08/16/21 16:33:00 EDT, Height, 85.3, kg, 03/30/21 21:26:00 EST, Dry Weight Start Date: 07/04/22 Status: Ordered BD noel pen needles 4mm x 32G BD noel pen needles 4mm x 32G, See Instructions, # 450 each, Refills 3, Tot. Refills 3, Maintenance, For management of insulin dependent diabetes - administer insulin 5x/day: dispense 90 day supply, 02/27/19 9:06:00 EST, Compound, 168.8, cm, 02/20/19... Start Date: 02/27/19 Status: Ordered dulaglutide 1.5 mg/0.5 mL subcutaneous [...] school., # 2 kit, 5Refills, Soft Stop, 04/08/22 13:16:00 EST, [facility]., 168.2, cm, 08/16/21 16:33:00EDT, Height, 85.3, kg, 03/30/21 21:26:00 EST, Dry W... Start Date: 04/08/22 Status: Ordered Home Blood Pressure Monitor See Instructions, # 1 each, Refills 0, Tot. Refills 0, Maintenance, Home Blood Pressure Monitor Useas directed to check blood pressure at least one hour after taking medications HCTZ-Lisinopril 25-20mg 1 tab PO daily Dx: I10 (Hypertension) Durati... Start Date: 04/28/21 Status: Ordered hydrochlorothiazide-lisinopril 25 mg-20 mg oral tablet 1 tablet, By Mouth, Daily, # 90 tablet, 0 Refills, Maintenance, 07/04/22 15:01:00 EDT, [facility] 1 tablet By Mouth Daily,x90 days, 168.2, cm, 08/16/21 16:33:00 EDT, Height, 85.3, kg, 03/30/21 21:26:00 EST, Dry Weight Start Date: 07/04/22 Stop Date: 10/02/22 Status: Ordered Insulin Syringe, BD Ultra-Fine 0.5 [...] By Mouth, 2 times a day, # 360 tablet, 0 Refills, Maintenance, 07/04/22 15:00:00 EDT, [facility] 168.2, cm, 08/16/21 16:33:00 EDT, Height, 85.3, kg, 03/30/21 21:26:00 EST, Dry Weight Start Date: 07/04/22 Stop Date: 10/02/22 Status: Ordered naproxen 500 mg oral tablet [...] Weight Start Date: 04/06/21 Status: Ordered Pen [place], 31 G x 5 mm BD Ultra [...] Date: 04/13/18 Status: Ordered Problem List Condition Confirmation Course Effective Dates Status H ealth Status Informant Back pain Confirmed Active Childhood obesity Confirmed Active Diabetes Mellitus Confirmed 10/25/11 Active Essential hypertension Confirmed Active Hyperlipidemia LDL goal < 100 1 Confirmed Active 1On Welchol per pediatric endocrinology since 2016. Dr. Castaneda, Peds, [facility], started pt on medcation as supplement to 80 mg Atorvastatin. Social History Social History Type Response Smoking Status Never smoker entered on: 02/22/17 Sex Patient Care team information Care Team Personnel Name: Sanjeev Marie DO Position: [facility] Resident Member Role: PCP Address: Address: [address] [facility] [place] [address]- Care Team Related Persons Name: LAURIE MARTIN Address: home [address] [place] [id number]
--- OUTSIDE RECORDS SUMMARY | 2023-09-22 07:57 | XMS_ITS | Continuity of Care Document ---
Author Organization [facility] Address [address] [place] [address]- Care Team Providers Care Roof Service Technician Name Role Phone Mayra HEARN, Gerry Beaver Primary Care Physician [facility] Date[facility]s): 04/14/21 - 06/05/21 [facility] [address] [place] [address]- Attending Physician: Rolando Omer MD Admitting Physician: [...] 15 Unknown, 1 Refills, 01/14/21 9:48:00 EDT, [facility]/pharmacy #[id number], 168.2, cm, 01/14/21 9:03:00 EDT, Height, 104.1, kg, 03/20/19 15:27:00 EST, Dry Weight Start Date: 01/14/21 Status: Ordered atorvastatin 80 mg oral tablet 1 tablet, By Mouth, Daily, Please schedule a follow up appointment with endocrinology for further refills, # 30 tablet, 1 Refills, Maintenance, 04/27/21 10:49:00 EST, [facility]/pharmacy #[id number], 168.2, cm, 04/27/21 10:25:00 EST, [...] tablet, 0 Refills, Maintenance, 04/27/21 10:49:00 EST, [facility]/pharmacy #[id number], 168.2, cm, 04/27/21 10:25:00 EST,Height, 85.3, kg, 03/30/21 21:26:00 EST, Dry Weight Start Date: 04/27/21 Status: Ordered dulaglutide 1.5 mg/0.5 mL subcutaneous solution 0.5 mL = 1.5 mg, Subcutaneous Injection, Every week, rotate injection sites, # 2 mL, 4 Refills, Maintenance, 04/06/21 8:28:00 EST, Solution, [facility]/pharmacy #[id number], note dose increase, 168.2, cm, [...] each, 3 Refills, Maintenance, 04/27/21 10:49:00 EST, [facility]/pharmacy #[id number], 1 tablet By Mouth Daily, [...] Weight Start Date: 04/06/21 Status: Ordered Pen [place], 31 G x 5 mm BD Ultra [...]
--- OUTSIDE RECORDS SUMMARY | 2023-09-22 07:57 | XMS_ITS | Continuity of Care Document ---
Author Organization [facility] Address [address] [place] [address]- Care Team Providers Care Senior Asp Net Developer Name Role Phone Sanjeev Marie DO Primary Care Physician [facility] Date(s): 01/07/22 - 02/06/22 [facility] [address] [place] [address]- Allergies, Adverse Reactions, Alerts Substance Reaction Severity [...] 15 Unknown, 1 Refills, 01/14/21 9:48:00 EDT, [facility]/pharmacy #[id number], 168.2, cm, 01/14/21 9:03:00 EDT, [...] Instructions, TAKE 1 TABLET BY MOUTH DAILY :NEED FOLLOW UP APPT., # 30 tablet, 3 Refills, Maintenance, 01/07/22 11:53:00 EDT, [facility], 168.2, cm, 08/16/21 16:33:00 EDT, Height, 85.3,kg, 03/30/21 21:26:00 EST, Dry Weight Start Date: 01/07/22 Status: Ordered BD noel pen needles 4mm [...] tablet, By Mouth, 2 times a day, for 30 days, # 180 tablet, 5 Refills, Physician Stop 03/28/22 16:24:00 EST, 09/29/21 16:24:00 EDT, [facility], 168.2, cm, 08/16/21 16:33:00 EDT, Height, 85.3, kg, 03/30/21 21:26:00 EST, Dry Weight Start Date: 09/29/21 Stop Date: 03/28/22 Status: Ordered dulaglutide 1.5 mg/0.5 mL subcutaneous solution 0.5 mL = 1.5 mg, Subcutaneous Injection, Every week, rotate injection sites, # 2 mL, 4 Refills, Maintenance, 04/06/21 8:28:00 EST, Solution, [facility]/pharmacy #[id number], note dose increase, 168.2, cm, 04/06/21 [...] tablet, By Mouth, Daily, # 30 tablet, 1 Refills, Maintenance, 01/06/22 17:30:00 EDT, [facility], [facility], TAKE 1 TABLET BY MOUTH EVERY DAY, 168.2, cm, 08/16/21 16:33:00 EDT, Height, 85.3, kg, 03/30/21 21:26:00 EST, Dry Weight Start Date: 01/06/22 Status: Ordered Insulin Syringe, BD Ultra-Fine 0.5 [...] Weight Start Date: 04/06/21 Status: Ordered Pen [place], 31 G x 5 mm BD Ultra [...] pediatric endocrinology since 2016. Dr. Castaneda, Peds, [facility], started pt on medcation as supplement to 80 mg Atorvastatin. Social History Social History Type Response Smoking Status Never smoker entered on: 02/22/17 Sex Patient Care team information Care Team Personnel Name: Sanjeev Marie DO Position: S Resident Member Role: PCP Address: Address: [address] [facility] [place] [address]- Care Team Related Persons Name: MARTIN, LAURIE Address: home [address] [place] [id number]
--- OUTSIDE RECORDS SUMMARY | 2023-09-22 07:57 | XMS_ITS | Continuity of Care Document ---
Author Organization [facility] Address [address] [place] [address]- Care Team Providers Care Barrel Straightener Name Role Phone Mayra HEARN, Gerry Beaver Primary Care Physician [facility]): [facility]21 - 09/11/21 [facility] [address] [place] [address]- Attending Physician: Rolando Omer MD Admitting Physician: [...] 15 Unknown, 1 Refills, 01/14/21 9:48:00 EDT, [facility]/pharmacy #[id number], 168.2, cm, 01/14/21 9:03:00 EDT, Height, [...] 30 tablet, 3 Refills, 07/20/21 15:42:00 EDT, [facility] 168.2, cm, 07/02/21 9:27:00 EDT, Height, 85.3, [...] AN APPT*., # 180 tablet, 0 Refills, [facility], 168.2, cm, 04/27/21 10:25:00 EST, Height, 85.3, kg, 03/30/21 21:26:00 EST, Dry Weight Start Date: 06/20/21 Status: Ordered dulaglutide 1.5 mg/0.5 mL subcutaneous solution 0.5 mL = 1.5 mg, Subcutaneous Injection, Every week, rotate injection sites, # 2 mL, 4 Refills, Maintenance, 04/06/21 8:28:00 EST, Solution, [facility]/pharmacy #[id number], note dose increase, 168.2, cm, 04/06/21 [...] each, 3 Refills, Maintenance, 07/20/21 15:42:00 EDT, [facility], 1 tablet By Mouth Daily, 168.2, cm, 07/02/21 9:27:00 EDT, Height, 85.3, kg, 03/30/21 21:26:00 EST, Dry Weight Start Date: 07/20/21 Status: Ordered Insulin Syringe, BD Ultra-Fine 0.5 cc 31 G x 8 mm (5/16in) See Instructions, # 100 each, Refills 11, Tot. Refills 11, Maintenance, diabetes, 5 times/daily, 02/27/19 9:06:00 EST, Compound, 168.8, cm, 12/11/19 13:48:00 EST, Height, 98.2, kg, 02/20/19 13:47:00 [...] Weight Start Date: 04/06/21 Status: Ordered Pen [place], 31 G x 5 mm BD Ultra [...]
--- OUTSIDE RECORDS SUMMARY | 2023-09-22 07:57 | XMS_ITS | Continuity of Care Document ---
Author Organization [facility] Address [address] [place] [address]- Care Team Providers Care Golf Course Superintendent Name Role Phone Sanjeev Marie DO Primary Care Physician [facility]s): 04[facility]/22 - 05/12/22 [facility] [address] [place] [address] Attending Physician: Chris Cardona Admitting Physician: Chris Cardona Referring Physician: AdmtrChris Allergies, Adverse Reactions, Alerts Substance Reaction Severity [...] 15 Unknown, 1 Refills, 01/14/21 9:48:00 EDT, [id number], 168.2, cm, [...] tablet, 3 Refills, Maintenance, 01/07/22 11:53:00 EDT, [facility], 168.2, cm, 08/16/21 16:33:00 EDT, Height, 85.3,kg, [...] 4 Refills, Maintenance, 04/06/21 8:28:00 EST, Solution, [facility]/pharmacy #1026, note dose increase, 168.2, cm, 04/06/21 [...] kit, 5Refills, Soft Stop, 04/08/22 13:16:00 EST, [facility] 168.2, cm, 08/16/21 16:33:00EDT, Height, 85.3, kg, [...] Daily, # 30 tablet, 1 Refills, Maintenance, 04/08/22 13:16:00 EST, [facility]., 30, 1 tablet By Mouth Daily, 168.2, cm, 08/16/21 16:33:00 EDT, Height, 85.3, kg, 03/30/21 21:26:00 EST, Dry Weight Start Date: 04/08/22 Status: Ordered Insulin Syringe, BD Ultra-Fine 0.5 [...] day, # 120 tablet, 3 Refills, Maintenance, 04/08/22 13:15:00 EST, [facility] 168.2, cm, 08/16/21 16:33:00 EDT, Height, 85.3, kg, 03/30/21 21:26:00 EST, Dry Weight Start Date: 04/08/22 Stop Date: 08/06/22 Status: Ordered naproxen 500 mg oral tablet [...] Weight Start Date: 04/06/21 Status: Ordered Pen [place], 31 G x 5 mm BD Ultra [...] pediatric endocrinology since 2016. Dr. Castaneda, Peds, [facility], started pt on medcation as supplement to 80 mg Atorvastatin. Social History Social History Type Response Smoking Status Never smoker entered on: 02/22/17 Sex Patient Care team information Care Team Personnel Name: Sanjeev Marie DO Position: S Resident Member Role: PCP Address: Address: [address] [facility] [place] [address]- Care Team Related Persons Name: LAURIE MARTIN Address: home [address] [place] [id number]
--- OUTSIDE RECORDS SUMMARY | 2023-09-22 07:58 | XMS_ITS | Continuity of Care Document ---
Author Organization [facility] Adult [facility] Address [address] [place] [address]- Care Team Providers Care Herb Counselor Name Role Phone Sanjeev Marie DO Primary Care Physician [facility] Date[facility]s): 08/30/21 - 09/29/21 [facility] Adult [facility] [address] [place] [address]- Attending Physician: Chris Cardona Admitting Physician: AdmtrChris Referring Physician: AdmtrChris Allergies, Adverse Reactions, Alerts [...] 15 Unknown, 1 Refills, 01/14/21 9:48:00 EDT, [facility]/pharmacy #1026, 168.2, cm, 01/14/21 9:03:00 [...] 30 tablet, 3 Refills, 07/20/21 15:42:00 EDT, [facility], 168.2, cm, 07/02/21 9:27:00 EDT, [...] Stop 03/28/22 16:24:00 EST, 09/29/21 16:24:00 EDT, [facility], 168.2, cm, 08/16/21 16:33:00 EDT, Height, 85.3, kg, 03/30/21 21:26:00 EST, Dry Weight Start Date: 09/29/21 Stop Date: 03/28/22 Status: Ordered dulaglutide 1.5 mg/0.5 mL subcutaneous solution 0.5 mL = 1.5 mg, Subcutaneous Injection, Every week, rotate injection sites, # 2 mL, 4 Refills, Maintenance, 04/06/21 8:28:00 EST, Solution, [facility]/pharmacy #1026, note dose increase, 168.2, cm, [...] tablet, By Mouth, Daily, # 30 each, 1 Refills, Maintenance, 09/28/21 16:00:00 EDT, [facility] 1 tablet By Mouth Daily, 168.2, cm, 08/16/21 16:33:00 EDT, Height, 85.3, kg, 03/30/21 21:26:00 EST, Dry Weight Start Date: 09/28/21 Status: Ordered Insulin Syringe, BD Ultra-Fine 0.5 [...] Weight Start Date: 04/06/21 Status: Ordered Pen [place], 31 G x 5 mm BD Ultra [...]
--- OUTSIDE RECORDS SUMMARY | 2023-09-22 07:58 | XMS_ITS | Continuity of Care Document ---
Author Organization [facility] Address [address] [place] [address]- Care Team Providers Care Streets And Buildings Decorator Name Role Phone Mayra HEARN, Gerry Beaver Primary Care Physician Encounter [facility] Date(s): 04/28/21 - 06/26/[address] [address]- Attending Physician: Not on Staff, Attending MD [...] 15 Unknown, 1 Refills, 01/14/21 9:48:00 EDT, [facility]/pharmacy #1026, 168.2, cm, 01/14/21 9:03:00 EDT, Height, 104.1, kg, 03/20/19 15:27:00 EST, Dry Weight Start Date: 01/14/21 Status: Ordered atorvastatin 80 mg oral tablet 1 tablet, By Mouth, Daily, NEED FOLLOW UP APPT., # 30 tablet, 1 Refills, [facility] 22644, 168.2, cm, 04/27/21 10:25:00 EST, Height, 85.3, kg, 03/30/21 21:26:00 EST, Dry Weight Start Date: 06/20/21 Status: Ordered BD noel pen needles 4mm [...] AN APPT*., # 180 tablet, 0 Refills, [facility] 488[facility], 168.2, cm, 04/27/21 10:25:00 EST, Height, 85.3, kg, 03/30/21 21:26:00 EST, Dry Weight Start Date: 06/20/21 Status: Ordered dulaglutide 1.5 mg/0.5 mL subcutaneous solution 0.5 mL = 1.5 mg, Subcutaneous Injection, Every week, rotate injection sites, # 2 mL, 4 Refills, Maintenance, 04/06/21 8:28:00 EST, Solution, [facility]/pharmacy #1026, note dose increase, 168.2, cm, 04/06/21 [...] each, 3 Refills, Maintenance, 04/27/21 10:49:00 EST, [facility], 1 tablet By Mouth [...] tablet, 3 Refills, Maintenance, 04/27/21 10:50:00 EST, [facility]/pharmacy #1026, 168.2, cm, 04/27/21 10:25:00 EST, Height, 85.3, kg, 03/30/21 21:26:00 EST, Dry Weight Start Date: 04/27/21 Stop Date: 08/25/21 Status: Ordered naproxen 500 mg oral tablet 1 tablet = 500 mg, By Mouth, 2 times a day, # 60 tablet, 0 Refills, Maintenance, 04/15/21 9:41:00 EST, Tablet, [facility]/pharmacy #1026, Partial fill upon patient request if [...] Weight Start Date: 04/06/21 Status: Ordered Pen [place], 31 G x 5 mm BD Ultra [...]
--- OUTSIDE RECORDS SUMMARY | 2023-09-22 07:58 | XMS_ITS | Continuity of Care Document ---
Author Organization [facility] Adult [facility] Address [address] [place] [address]- Care Team Providers Care Outreach Professional Name Role Phone Mayra HEARN, Gerry Beaver Primary Care Physician [facility]s): 07/02/21 - 08/01/21 [facility] [address] [place], [place] [address] Allergies, Adverse Reactions, Alerts Substance Reaction Severity [...] 30 tablet, 3 Refills, 07/20/21 15:42:00 EDT, [facility], 168.2, cm, 07/02/21 9:27:00 EDT, Height, 85.3, kg, 03/30/21 21:26:00 EST, Dry Weight Start Date: 07/20/21 Status: Ordered BD noel pen needles 4mm x 32G BD noel pen needles 4mm x 32G, See Instructions, # 450 each, Refills 3, Tot. Refills 3, Maintenance, For management of insulin dependent diabetes - administer insulin 5x/day: dispense 90 day supply, 02/27/19 9:06:00 EST, Compound, 168.8, cm, 12/11/19... Start Date: 02/27/19 Status: Ordered Colesevelam Hydrochloride 625 mg oral tablet 3 tablet, By Mouth, 2 times a day, *NEED TO SCHEDULE AN APPT*., # 180 tablet, 0 Refills, [facility] 540[facility], 168.2, cm, 04/27/21 10:25:00 EST, Height, 85.3, kg, 03/30/21 21:26:00 EST, Dry Weight Start Date: 06/20/21 Status: Ordered dulaglutide 1.5 mg/0.5 mL subcutaneous solution 0.5 mL = 1.5 mg, Subcutaneous Injection, Every week, rotate injection sites, # 2 mL, 4 Refills, Maintenance, 04/06/21 8:28:00 EST, Solution, [facility]/pharmacy #1026, note dose increase, 168.2, [...] each, 3 Refills, Maintenance, 07/20/21 15:42:00 EDT, [facility] 1 tablet By Mouth Daily, 168.2, [...] 5 Refills, Maintenance, 04/06/21 8:30:00 EST, Solution, [facility]/pharmacy #1026, pt states was only taking 20 units a day. will fill at this dose. Note dose change., 168.2, cm, 04/06/21 8:12:00 EST, Heigh... Start Date: 04/06/21 Status: Ordered metFORMIN 500 mg oral tablet 2 tablet = 1,000 mg, By Mouth, 2 times a day, # 120 tablet, 3 Refills, Maintenance, 04/27/21 10:50:00 EST, [facility]/pharmacy #1026, 168.2, cm, 04/27/21 10:25:00 EST, Height, 85.3, kg, 03/30/21 21:26:00 EST, Dry Weight Start Date: 04/27/21 Stop Date: 08/25/21 Status: Ordered naproxen 500 mg oral tablet 1 tablet = 500 mg, By Mouth, 2 times a day, # 60 tablet, 0 Refills, Maintenance, 04/15/21 9:41:00 EST, Tablet, [facility]/pharmacy #1026, Partial fill upon patient request if [...] Weight Start Date: 04/06/21 Status: Ordered Pen [place], 31 G x 5 mm BD Ultra [...]
--- OUTSIDE RECORDS SUMMARY | 2023-09-22 07:58 | XMS_ITS | Continuity of Care Document ---
Author Organization [facility] Adult Medicine Address [address] [place] [address]- Care Team Providers Care Environmental Protection Specialist Name Role Phone Sanjeev Marie DO Primary Care Physician Encounter [facility] Date(s): 11/08/21 - 01/14/22 [facility] Adult Medicine [address] [place] [address]- Attending Physician: Not on Staff, Attending MD [...] 15 Unknown, 1 Refills, 01/14/21 9:48:00 EDT, [facility]/pharmacy #[id number], 168.2, cm, 01/14/21 9:03:00 [...] tablet, 3 Refills, Maintenance, 01/07/22 11:53:00 EDT, [facility], 168.2, cm, 08/16/21 16:33:00 EDT, Height, 85.3,kg, [...] Stop 03/28/22 16:24:00 EST, 09/29/21 16:24:00 EDT, [facility], 168.2, cm, 08/16/21 16:33:00 EDT, Height, 85.3, kg, 03/30/21 21:26:00 EST, Dry Weight Start Date: 09/29/21 Stop Date: 03/28/22 Status: Ordered dulaglutide 1.5 mg/0.5 mL subcutaneous solution 0.5 mL = 1.5 mg, Subcutaneous Injection, Every week, rotate injection sites, # 2 mL, 4 Refills, Maintenance, 04/06/21 8:28:00 EST, Solution, [facility]/pharmacy #1026, note dose increase, 168.2, [...] tablet, 1 Refills, Maintenance, 01/06/22 17:30:00 EDT, [facility], 30, TAKE 1 TABLET BY MOUTH EVERY [...] Weight Start Date: 04/06/21 Status: Ordered Pen [place], 31 G x 5 mm BD Ultra [...] Active 1On Welchol per pediatric endocrinology since 2015. Dr. Castaneda, Peds[facility], started pt on medcation as supplement to 80 mg Atorvastatin. Social History Social History Type Response Smoking Status Never smoker entered on: 02/22/17 Sex Patient Care team information Personnel Name: Sanjeev Marie DO Address: Address: [address] [place] [address]
--- OUTSIDE RECORDS SUMMARY | 2023-09-22 07:58 | XMS_ITS | Continuity of Care Document ---
Author Organization [facility] Adult Medicine Address [address] [place] [address]- Care Team Providers Care Handle Assembler Name Role Phone Sanjeev Marie DO Primary Care Physician [facility] Date[facility]s): 07/21/22 - 08/20/22 [facility] Adult Medicine [address] [place] [address]- Attending Physician: Chris Cardona Admitting Physician: AdmChris maurer Referring Physician: AdmtrChris Allergies, Adverse Reactions, Alerts [...] Refills, 01/14/21 9:48:00 EDT, [facility]/pharmacy #1026, 168.2, cm, 01/14/21 9:03:00 EDT, Height, [...] tablet, 0 Refills, Maintenance, 07/04/22 15:04:00 EDT, [facility], 168.2, cm, 08/16/21 16:33:00 EDT, Height, [...] 04/06/21 8:28:00 EST, Solution, [facility]/pharmacy #1026, note dose increase, 168.2, cm, 04/06/21 [...] kit, 5Refills, Soft Stop, 04/08/22 13:16:00 EST, [facility]., 168.2, cm, 08/16/21 16:33:00EDT, Height, 85.3, [...] tablet, 0 Refills, Maintenance, 07/04/22 15:01:00 EDT, [facility]., 1 tablet By Mouth Daily,x90 days, 168.2, [...] tablet, 0 Refills, Maintenance, 07/04/22 15:00:00 EDT, [facility], 168.2, cm, 08/16/21 16:33:00 EDT, Height, 85.3, [...] Weight Start Date: 04/06/21 Status: Ordered Pen [place], 31 G x 5 mm BD Ultra [...] pediatric endocrinology since 2016. Dr. Castaneda, Peds, [facility], started pt on medcation as supplement to 80 mg Atorvastatin. Social History Social History Type Response Smoking Status Never smoker entered on: 02/22/17 Sex Patient Care team information Care Team Personnel Name: Sanjeev Marie DO Position: S Resident Member Role: PCP Address: Address: [address] [place] [address]- Care Team Related Persons Name: LAURIE MARTIN Address: home [address] [place] [id number]
--- OUTSIDE RECORDS SUMMARY | 2023-09-22 07:58 | XMS_ITS | Continuity of Care Document ---
Author Organization [facility] Address [address] [place] [address]- Care Team Providers Care Manager Intensive Care Unit Name Role Phone Gerry Nunez MD Primary Care Physician [phone] [facility]counter [facility] Date(s): 03/20/19 - 03/27/19 [facility] [address] [place] [address]- [facility] Attending Physician: Not on Staff, Attending MD Referring Physician: Gerry Nunez MD Allergies, Adverse [...] mL, 5 Refills, Maintenance, 03/14/19 8:16:00 EST, [facility]/pharmacy #[id number], new order, 168.8, cm, 02/20/19 13:48:00 EST, Height, 98.2, kg, 02/20/19 13:47:00 EST, Dry Weight Start Date: 03/14/19 Status: Ordered atorvastatin 80 mg oral tablet 1 tablet = 80 mg, By Mouth, Daily, # 30 tablet, 6 Refills, Maintenance, 03/20/19 16:21:00 EST, Tablet, [facility]/pharmacy #1026, 168.2, cm, 03/20/19 15:27:00 EST, Height, [...] cm, 02/20/19... Start Date: 02/27/19 Status: Ordered Freestyle Lancets See Instructions, # 200 each, Refills 11, Tot. Refills 11, Maintenance, diabetes/ testing 7 times/daily, 11/22/17 12:17:41 EDT, Compound Start Date: 11/22/17 Status: Ordered Freestyle Lite Test Strips See Instructions, # 200 each, Refills 3, Tot. Refills 3, Maintenance, type 1 diabetes testing 7 times/day, 11/26/18 16:19:27 EDT, Compound Start Date: 11/26/18 Status: Ordered Glucagon Emergency Kit for Low Blood Sugar 1 mg injection See Instructions, Use as directed for type 1 diabetes. One for home and one for school., # 2 kit, 5Refills, Soft Stop, 05/27/14 11:29:09, Use as directed for type 1 diabetes. One for home and one for school. Start Date: 05/27/14 Status: Ordered Humalog Kwik Pen 100 units/mL subcutaneous injection See Instructions, Subcutaneous Infusion, Use as directed for Diabetes mellitus type 1. (Max Dose=70units/day)., # 20 each, 5 Refills, Maintenance, 06/27/17 14:32:51 EDT Start Date: 06/27/17 Stop Date: 12/19/18 Status: Ordered hydrochlorothiazide-lisinopril 25 mg-20 mg oral tablet 1 tablet, By Mouth, Daily, # 30 tablet, 1 Refills, Maintenance, 03/20/19 16:21:00 EST, [facility]/pharmacy#1026, 1 tablet By Mouth Daily, 168.2, cm, 03/20/19 15:27:00 EST, Height, 104.1, kg, 03/20/19 15:27:00 EST, Dry Weight Start Date: 03/20/19 Status: Ordered Insulin Syringe, BD Ultra-Fine 0.5 [...] EST, Compound Start Date: 04/13/18 Status: Ordered Welchol 625 mg oral tablet 3 tablet = 1,875 mg, By Mouth, 2 times a day, # 180 tablet, 3 Refills, Maintenance, 11/26/18 17:16:00 EDT, Tablet Start Date: 11/26/18 Status: Ordered Problem List Condition Effective Dates Status Health Status Inform ant Childhood obesity(Confirmed) Active Diabetes Mellitus(Confirmed) 10/25/11 Active Essential hypertension(Confirmed) Active Hyperlipidemia LDL goal < 100(Confirmed) Active Vital Signs Most recent to oldest [Reference Range]: 1 Height 168.2 cm (03/20/19 3:27 PM) Weight 104.1 kg (03/20/19 3:27 PM) Pulse Rate [55-90 bpm] 84 bpm (03/20/19 3:27 PM) Body Mass Index [18.5-24.99] 36.8 *>HHI* (03/20/19 3:27 PM) Blood Pressure [90-138/55-84 mm Hg] 135/ 75mm Hg (03/20/19 3:27 PM) Blood pressure sites Arm, right (03/20/19 3:27 PM) Dry Weight 104.1 kg (03/20/19 3:27 PM) Weight Obtained Via Standing scale (03/20/19 3:27 PM) Dry Weight Obtained Via Standing scale (03/20/19 3:27 PM) Social History Social History Type Response Smoking Status Never smoker entered on: 02/22/17 Sex
--- OUTSIDE RECORDS SUMMARY | 2023-09-22 07:58 | XMS_ITS | Continuity of Care Document ---
Author Organization [facility] Adult [facility] Address [address] [place] [address]- Care Team Providers Care Financial Project Manager Name Role Phone Mayra HEARN, Gerry Beaver Primary Care Physician [facility]): 04/14/21 - 05/14/21 [facility] [address] [place], [place] [address] Allergies, Adverse Reactions, Alerts Substance Reaction Severity [...] tablet, 1 Refills, Maintenance, 04/27/21 10:49:00 EST, [facility]/pharmacy #[id number], 168.2, cm, 04/27/21 10:25:00 EST, [...] tablet, 0 Refills, Maintenance, 04/27/21 10:49:00 EST, [facility]/pharmacy #[id number], 168.2, cm, 04/27/21 10:25:00 EST,Height, 85.3, [...] 0 Refills, Maintenance, 04/15/21 9:41:00 EST, Tablet, [facility]/pharmacy #[id number], Partial fill upon patient request [...] Weight Start Date: 04/06/21 Status: Ordered Pen [place], 31 G x 5 mm BD Ultra [...]
--- OUTSIDE RECORDS SUMMARY | 2023-09-22 07:58 | XMS_ITS | Continuity of Care Document ---
Author Organization [facility] Adult [facility] Address [address] [place] [address]- Care Team Providers Care Back Sewer Name Role Phone Sanjeev Marie DO Primary Care Physician [facility] Date(s): 08/20/21 - 09/19/21 [facility] [address] [place] [address]- Allergies, Adverse Reactions, Alerts Substance Reaction Severity [...] 15 Unknown, 1 Refills, 01/14/21 9:48:00 EDT, [facility]/pharmacy #[id number], 168.2, cm, 01/14/21 9:03:00 EDT, Height, [...] 30 tablet, 3 Refills, 07/20/21 15:42:00 EDT, [facility] 168.2, cm, 07/02/21 9:27:00 EDT, Height, 85.3, [...] AN APPT*., # 180 tablet, 0 Refills, [facility] STORE 05[facility], 168.2, cm, 04/27/21 10:25:00 EST, Height, 85.3, kg, 03/30/21 21:26:00 EST, Dry Weight Start Date: 06/20/21 Status: Ordered dulaglutide 1.5 mg/0.5 mL subcutaneous solution 0.5 mL = 1.5 mg, Subcutaneous Injection, Every week, rotate injection sites, # 2 mL, 4 Refills, Maintenance, 04/06/21 8:28:00 EST, Solution, [facility]/pharmacy #1026, note dose increase, 168.2, cm, 04/06/21 [...] each, 3 Refills, Maintenance, 07/20/21 15:42:00 EDT, [facility], 1 tablet By Mouth Daily, 168.2, cm, 07/02/21 9:27:00 EDT, Height, 85.3, kg, 03/30/21 21:26:00 EST, Dry Weight Start Date: 07/20/21 Status: Ordered Insulin Syringe, BD Ultra-Fine 0.5 cc 31 G x 8 mm (516in) See Instructions, # 100 each, Refills 11, [...] Weight Start Date: 04/06/21 Status: Ordered Pen [place], 31 G x 5 mm BD Ultra [...]
--- OUTSIDE RECORDS SUMMARY | 2023-09-22 07:58 | XMS_ITS | Continuity of Care Document ---
Author Organization [facility]ology Address [address] [place] [address]- Care Team Providers Care Lymphedema Therapist Name Role Phone Mayra HEARN, Gerry Beaver Primary Care Physician [facility] 10/18/19 - 11/17/19 [facility] Pediatric Endocrinology [address] [place] [address]- [facility] Allergies, Adverse Reactions, Alerts Substance Reaction Severity [...] mL, 5 Refills, Maintenance, 03/14/19 8:16:00 EST, [facility]/pharmacy #[id number], new order, 168.8, cm, 02/20/19 13:48:00 EST, Height, 98.2, kg, 02/20/19 13:47:00 EST, Dry Weight Start Date: 03/14/19 Status: Ordered atorvastatin 80 mg oral tablet 1 tablet, By Mouth, Daily, # 30 tablet, 0 Refills, Maintenance, 11/11/19 8:45:00 EDT, [facility]/pharmacy #1026, 168.2, cm, 03/20/19 15:27:00 EST, Height, [...] 0 Refills, Soft Stop, 07/05/19 14:30:00 EDT, Tablet,[facility]/pharmacy #1026, 168.2, cm, 03/20/19 15:27:00 EST, Height, [...] tablet, 3 Refills, Maintenance, 08/06/19 15:10:00 EDT, [facility]/pharmacy#1026, 1 tablet By Mouth Daily, 168.2, cm, [...]
--- OUTSIDE RECORDS SUMMARY | 2023-09-22 07:58 | XMS_ITS | Continuity of Care Document ---
Author Organization [facility] Adult Medicine Address [address] [place] [address]- Care Team Providers Care Principal Biostatistician Name Role Phone Mayra HEARN, Gerry Beaver Primary Care Physician [facility]): 04/22/21 - 05/22/21 [facility] Adult Medicine [address] [place], [place] [address] Allergies, Adverse Reactions, Alerts Substance Reaction Severity [...] 15 Unknown, 1 Refills, 01/14/21 9:48:00 EDT, [facility]/pharmacy #1026, 168.2, cm, 01/14/21 9:03:00 EDT, Height, 104.1, kg, 03/20/19 15:27:00 EST, Dry Weight Start Date: 01/14/21 Status: Ordered atorvastatin 80 mg oral tablet 1 tablet, By Mouth, Daily, Please schedule a follow up appointment with endocrinology for further refills, # 30 tablet, 1 Refills, Maintenance, 04/27/21 10:49:00 EST, [facility]/pharmacy #1026, 168.2, cm, 04/27/21 10:25:00 EST, [...] tablet, 0 Refills, Maintenance, 04/27/21 10:49:00 EST, [facility]/pharmacy #1026, 168.2, cm, 04/27/21 10:25:00 EST,Height, 85.3, kg, 03/30/21 21:26:00 EST, Dry Weight Start Date: 04/27/21 Status: Ordered dulaglutide 1.5 mg/0.5 mL subcutaneous solution 0.5 mL = 1.5 mg, Subcutaneous Injection, Every week, rotate injection sites, # 2 mL, 4 Refills, Maintenance, 04/06/21 8:28:00 EST, Solution, [facility]/pharmacy #1026, note dose increase, 168.2, [...] 0 Refills, Maintenance, 04/15/21 9:41:00 EST, Tablet, [facility]/pharmacy #[id number], Partial fill upon patient [...] Weight Start Date: 04/06/21 Status: Ordered Pen [place], 31 G x 5 mm BD Ultra [...]
--- OUTSIDE RECORDS SUMMARY | 2023-09-22 07:58 | XMS_ITS | Continuity of Care Document ---
Author Organization [facility] Address [address] [place] [address]- Care Team Providers Care Agriculture Scientist Name Role Phone Gerry Nunez MD Primary Care Physician [phone] [facility] Date[facility]s): 02/20/19 - 02/27/19 [facility] [address] [place] [address]- [facility] Attending Physician: Not on Staff, Attending MD Referring Physician: Gerry Nunez MD Allergies, Adverse Reactions, Alerts Substance Reaction Severity Status NKA Active Immunizations Given and Recorded Vaccine Date [...] units/day, # 10 mL, 5 Refills, Maintenance, 02/20/19 16:10:08 EST, new order, 168.8, cm, 02/20/19 13:48:43 EST, Height, 98.2, kg, 02/20/19 13:47:40 EST, Dry Weight Start Date: 02/20/19 Status: Ordered atorvastatin 80 mg oral tablet 1 tablet = 80 mg, By Mouth, Daily, # 30 tablet, 6 Refills, Maintenance, Tablet, Route to Pharmacy Electronically, [id number], [facility]/pharmacy #[id number] Start Date: 02/16/18 Status: Ordered BD noel pen needles 4mm [...] Daily, # 30 tablet, 1 Refills, Maintenance, 08/27/18 13:44:21 EDT, 1 tablet By Mouth Daily Start Date: 08/27/18 Status: Ordered Insulin Syringe, BD Ultra-Fine 0.5 cc 31 G x 8 mm (07/26in) See Instructions, # 100 each, Refills 11, [...] recent to oldest [Reference Range]: 1 Height 168.8 cm (02/20/19 1:47 PM) Weight 98.2 kg (02/20/19 1:47 PM) Body Mass Index [18.5-24.99] 34.46 *>HHI* (02/20/19 1:47 PM) Dry Weight 98.2 kg (02/20/19 1:47 PM) Social History Social History Type Response Smoking Status Never smoker entered on: 02/22/17 Sex
--- OUTSIDE RECORDS SUMMARY | 2023-09-22 07:58 | XMS_ITS | Continuity of Care Document ---
Author Organization [facility] Address [address] [place] [address]- Care Team Providers Care Sign Carpenter Name Role Phone Mayra HEARN, Gerry Beaver Primary Care Physician [phone] Encounter [facility] Date(s): 01/15/21 - 03/05/[address] [address]- Attending Physician: Not on Staff, Attending MD [...] 15 Unknown, 1 Refills, 01/14/21 9:48:00 EDT, [facility]/pharmacy #[id number], 168.2, cm, 01/14/21 9:03:00 EDT, Height, 104.1, kg, 03/20/19 15:27:00 EST, Dry Weight Start Date: 01/14/21 Status: Ordered atorvastatin 80 mg oral tablet 1 tablet, By Mouth, Daily, Please schedule a follow up appointment with endocrinology for further refills, # 30 tablet, 1 Refills, Maintenance, 12/05/19 5:07:00 EDT, [facility]/pharmacy #[id number], 168.2, cm, 03/20/19 15:27:00 EST, [...] tablet, 0 Refills, Maintenance, 12/17/19 9:04:00 EDT, [facility]/pharmacy #[id number], 168.2, cm, 03/20/19 15:27:00 EST, [...] 0 Refills, Maintenance, 01/29/21 10:52:00 EST, Solution, [facility]/pharmacy #[id number], Partial fill upon patient request ifthe [...]
--- OUTSIDE RECORDS SUMMARY | 2023-09-22 07:58 | XMS_ITS | Continuity of Care Document ---
Author Organization [facility] Address [address] [place] [address]- Care Team Providers Care Rig Welder Name Role Phone Gerry Nunez MD Primary Care Physician [facility]s): 03/05/20 - 06/17/20 [facility] Diabetes [address] [place] [id number] Attending Physician: Juan Ramírez MD Admitting Physician: Juan Ramírez MD Referring Physician: Gerry Nunez MD Allergies, [...] MEALS, # 15 Unknown, 1 Refills, Maintenance, [facility] STORE [id number], 168.2, cm, 01/09/20 8:57:00 EDT, Height, 104.1, kg, 03/20/19 15:27:00 EST, Dry Weight Start Date: 03/05/20 Status: Ordered atorvastatin 80 mg oral tablet 1 tablet, By Mouth, Daily, Please schedule a follow up appointment with endocrinology for further refills, # 30 tablet, 1 Refills, Maintenance, 12/05/19 5:07:00 EDT, [facility]/pharmacy #[id number], 168.2, cm, 03/20/19 15:27:00 [...] tablet, 0 Refills, Maintenance, 12/17/19 9:04:00 EDT, [facility]/pharmacy #[id number], 168.2, cm, 03/20/19 15:27:00 EST, Height, 104.1, kg, 03/20/19 15:27:00 EST, Dry Weight Start Date: 12/17/19 Status: Ordered Diflucan 150 mg oral tablet 1 tablet = 150 mg, By Mouth, Once, # 1 tablet, 0 Refills, Soft Stop, 07/05/19 14:30:00 EDT, Tablet,[facility]/pharmacy #[id number], 168.2, cm, 03/20/19 15:27:00 [...]
--- OUTSIDE RECORDS SUMMARY | 2023-09-22 07:58 | XMS_ITS | Continuity of Care Document ---
Author Organization [facility] nd[facility] Address [address] [place] [address]- Care Team Providers Care Carton Repairer Name Role Phone Mayra HEARN, Gerry Beaver Primary Care Physician [facility]): 10/18/19 - 11/17/19 [facility] [address] [place] [address]- [facility] Attending Physician: Chris Cardona Admitting Physician: AdmChris [...] 5 Refills, Maintenance, 03/14/19 8:16:00 EST, [facility]/pharmacy #[id number], new order, 168.8, cm, 02/20/19 13:48:00 EST, Height, 98.2, kg, 02/20/19 13:47:00 EST, Dry Weight Start Date: 03/14/19 Status: Ordered atorvastatin 80 mg oral tablet 1 tablet, By Mouth, Daily, # 30 tablet, 0 Refills, Maintenance, 11/11/19 8:45:00 EDT, [facility]/pharmacy #[id number], 168.2, cm, 03/20/19 15:27:00 EST, [...]
--- OUTSIDE RECORDS SUMMARY | 2023-09-22 07:58 | XMS_ITS | Continuity of Care Document ---
Author Organization [facility] ter Address [address] [place] [address]- Care Team Providers Care Inhalation Therapy Teacher Name Role Phone Mayra HEARN, Gerry Beaver Primary Care Physician [phone] [facility]counter [facility] Date(s): 01/09/20 - 01/09/[address] [address]- [facility] Discharge Disposition: A-D/C Home Attending Physician: Yo Zuluaga DO Admitting Physician: Yo Zuluaga DO Referring Physician: Not on Staff, Referring MD Allergies, Adverse Reactions, Alerts Substance Reaction [...] mL, 5 Refills, Maintenance, 03/14/19 8:16:00 EST, [id number], new order, 168.8, cm, 02/20/19 13:48:00 EST, Height, 98.2, kg, 02/20/19 13:47:00 EST, Dry Weight Start Date: 03/14/19 Status: Ordered Admelog SoloStar 100 units/mL injectable solution See Instructions, Subcutaneous Infusion 10-20 units with meals, # 15 mL, 1 Refills, Maintenance, 01/09/20 9:15:00 EDT, [id number], 168.2, cm, 01/09/20 8:57:00 EDT, Height, 104.1, kg, 03/20/2014:27:00 EST, Dry Weight Start Date: 01/09/20 Status: Ordered atorvastatin 80 mg oral tablet 1 tablet, By Mouth, Daily, Please schedule a follow up appointment with endocrinology for further refills, # 30 tablet, 1 Refills, Maintenance, 12/05/19 5:07:00 EDT, [id number], 168.2, cm, 03/20/19 15:27:00 EST, [...] tablet, 0 Refills, Maintenance, 12/17/19 9:04:00 EDT, [facility]/pharmacy #[id number], 168.2, cm, 03/20/19 15:27:00 EST, Height, 104.1, kg, 03/20/19 15:27:00 EST, Dry Weight Start Date: 12/17/19 Status: Ordered Diflucan 150 mg oral tablet 1 tablet = 150 mg, By Mouth, Once, # 1 tablet, 0 Refills, Soft Stop, 07/05/19 14:30:00 EDT, Tablet,[facility]/pharmacy #[id number], 168.2, cm, 03/20/19 15:27:00 [...] home and one for school. Start Date: 3/17/15 Status: Ordered hydrochlorothiazide-lisinopril 25 mg-20 mg oral tablet 1 tablet, By Mouth, Daily, # 30 tablet, 3 Refills, Maintenance, 08/06/19 15:10:00 EDT, [facility]/pharmacy#1026, 1 tablet By Mouth Daily, 168.2, cm, [...] 1 Refills, Maintenance, 01/09/20 9:14:00 EDT, Solution, [facility]/pharmacy #[id number], 168.2, cm, 01/09/20 8:57:00 EDT, Height, [...] Stop Date: 06/20/19 Status: Ordered OneTouch Verio Glucose Meter See Instructions, # 1 each, Refills 0, Tot. Refills 0, Maintenance, Use One Touch Verio flex meter to monitor blood glucose 5x a day, E10.9, 01/09/20 9:25:00 EDT, Supply, 168.2, cm, 01/09/20 8:57:00 EDT, Height, 104.1, kg, 03/20/19 15:27:00 EST, Dry W... Start Date: 01/09/20 Status: Ordered OneTouch Verio Lancets See Instructions, # 200 each, Refills 6, Tot. Refills 6, Maintenance, Use One Touch Verio Flex lancet to check blood glucose 5x a day, E10.9, 01/09/20 9:25:00 EDT, Supply, 168.2, cm, 01/09/20 8:57:00EDT, Height, 104.1, kg, 03/20/19 15:27:00 EST, Dry... Start Date: 01/09/20 Status: Ordered OneTouch Verio Test Strips See Instructions, # 200 each, Refills 6, Tot. Refills 6, Maintenance, Use One Touch Verio Flex teststrips to check blood glucose 5x a day, E10.9, 01/09/20 9:25:00 EDT, Supply, 168.2, cm, 01/09/20 8:57:00 EDT, Height, 104.1, kg, 03/20/19 15:27:00 EST,... Start Date: 01/09/20 Status: Ordered OneTouch Verio Test Strips See [...] Most recent to oldest [Reference Range]: 1 2 3 Oxygen Saturation [94-100 %] 100 % (01/09/20 2:44 PM) 100 % (01/09/20 1:59 PM) 100 % (01/09/20 11:11 AM) Pulse Rate [55-90 bpm] 81 bpm (01/09/20 2:44 PM) 73 bpm (01/09/20 1:59 PM) 90 bpm (01/09/20 11:11 AM) Blood Pressure [90-138/55-84 mm Hg] 137/83mm Hg (01/09/20 2:44 PM) 132/82mm Hg (01/09/20 1:59 PM) 168/98mm Hg *H* (01/09/20 11:11 AM) Respiratory Rate [16-30 br/min] 16 br/min (01/09/20 2:44 PM) 16 br/min (01/09/20 1:59 PM) 16 br/min (01/09/20 11:11 AM) Temperature [96.8-100.4 DegF] 98.4 DegF (01/09/20 2:44 PM) 98.0 DegF (01/09/20 11:11 AM) Mode of Delivery (Oxygen) Room air (01/09/20 2:44 PM) Room air (01/09/20 1:59 PM) Room air (01/09/20 11:11 AM) Blood pressure sites Arm, left (01/09/20 2:44 PM) Arm, left (01/09/20 1:59 PM) Arm, right (01/09/20 11:11 AM) Social History Social History Type Response Smoking Status Never smoker entered on: 02/22/17 Sex
--- OUTSIDE RECORDS SUMMARY | 2023-09-22 07:58 | XMS_ITS | Continuity of Care Document ---
Author Organization [facility] Address [address] [place] [address]- Care Team Providers Care Slp Name Role Phone Mayra HEARN, Gerry Beaver Primary Care Physician [phone] [facility]s): 04/23/21 - 05/23/21 [facility] [address] [place], [place] [address] Allergies, Adverse Reactions, Alerts Substance Reaction Severity [...] 1 Refills, 01/14/21 9:48:00 EDT, [facility]/pharmacy #[id number], 168.2, cm, 01/14/21 9:03:00 EDT, Height, 104.1, kg, 03/20/19 15:27:00 EST, Dry Weight Start Date: 01/14/21 Status: Ordered atorvastatin 80 mg oral tablet 1 tablet, By Mouth, Daily, Please schedule a follow up appointment with endocrinology for further refills, # 30 tablet, 1 Refills, Maintenance, 04/27/21 10:49:00 EST, [facility]/pharmacy #[id number], 168.2, cm, 04/27/21 10:25:00 EST, Height, [...] tablet, 0 Refills, Maintenance, 04/27/21 10:49:00 EST, [facility]/pharmacy #[id number], 168.2, cm, 04/27/21 10:25:00 EST,Height, 85.3, kg, 03/30/21 21:26:00 EST, Dry Weight Start Date: 04/27/21 Status: Ordered dulaglutide 1.5 mg/0.5 mL subcutaneous solution 0.5 mL = 1.5 mg, Subcutaneous Injection, Every week, rotate injection sites, # 2 mL, 4 Refills, Maintenance, 04/06/21 8:28:00 EST, Solution, [facility]/pharmacy #[id number], note dose increase, 168.2, cm, 04/06/21 [...] 0 Refills, Maintenance, 04/15/21 9:41:00 EST, Tablet, [facility]/pharmacy #[id number], Partial fill upon patient request if [...] Weight Start Date: 04/06/21 Status: Ordered Pen [place], 31 G x 5 mm BD Ultra [...]
--- OUTSIDE RECORDS SUMMARY | 2023-09-22 07:58 | XMS_ITS | Continuity of Care Document ---
Author Organization [facility] Address [address] [place] [address]- Care Team Providers Care Full Stack Php Developer Name Role Phone Sanjeev Marie DO Primary Care Physician [facility]s): 04/13/22 - 05/13/22 [facility] [address] [place] [address]- Attending Physician: Chris Cardona Admitting Physician: AdmChris [...] 15 Unknown, 1 Refills, 01/14/21 9:48:00 EDT, [facility]/pharmacy #[id number], 168.2, cm, 01/14/21 9:03:00 EDT, [...] tablet, 3 Refills, Maintenance, 01/07/22 11:53:00 EDT, [facility], 168.2, cm, 08/16/21 16:33:00 EDT, [...] 4 Refills, Maintenance, 04/06/21 8:28:00 EST, Solution, [facility]/pharmacy #[id number], note dose increase, 168.2, cm, [...] kit, 5Refills, Soft Stop, 04/08/22 13:16:00 EST, [facility]., 168.2, cm, 08/16/21 16:33:00EDT, Height, 85.3, [...] tablet, 1 Refills, Maintenance, 04/08/22 13:16:00 EST, [facility] 30, 1 tablet By Mouth Daily, 168.2, [...] tablet, 3 Refills, Maintenance, 04/08/22 13:15:00 EST, [facility] 168.2, cm, 08/16/21 16:33:00 EDT, Height, [...] Weight Start Date: 04/06/21 Status: Ordered Pen [place], 31 G x 5 mm BD Ultra [...] pediatric endocrinology since 2016. Dr. Castaneda, Peds, [facility], started pt on medcation as supplement to 80 mg Atorvastatin. Social History Social History Type Response Smoking Status Never smoker entered on: 02/22/17 Sex Patient Care team information Care Team Personnel Name: Sanjeev Marie DO Position: S Resident Member Role: PCP Address: Address: [address] [facility] [place] [address]- Care Team Related Persons Name: LAURIE MARTIN Address: home [address] [place] [id number]
--- OUTSIDE RECORDS SUMMARY | 2023-09-22 07:58 | XMS_ITS | Continuity of Care Document ---
Author Organization [facility] Address [address] [place] [address]- Care Team Providers Care Rn Informatics Name Role Phone Matti Marie DOew Cari Primary Care Physician [facility]s): 08/23/21 - 09/22/21 [facility] [address] [place] [id number] Allergies, Adverse Reactions, Alerts Substance Reaction Severity [...] Unknown, 1 Refills, 01/14/21 9:48:00 EDT, [facility]/pharmacy #[id number], 168.2, cm, 01/14/21 9:03:00 EDT, [...] 30 tablet, 3 Refills, 07/20/21 15:42:00 EDT, [facility], 168.2, cm, 07/02/21 9:27:00 EDT, Height, [...] AN APPT*., # 180 tablet, 0 Refills, [facility] STORE [address]6026, 168.2, cm, 04/27/21 10:25:00 EST, Height, 85.3, kg, 03/30/21 21:26:00 EST, Dry Weight Start Date: 06/20/21 Status: Ordered dulaglutide 1.5 mg/0.5 mL subcutaneous solution 0.5 mL = 1.5 mg, Subcutaneous Injection, Every week, rotate injection sites, # 2 mL, 4 Refills, Maintenance, 04/06/21 8:28:00 EST, Solution, [facility]/pharmacy #1026, note dose increase, 168.2, cm, 04/06/21 [...] each, 3 Refills, Maintenance, 07/20/21 15:42:00 EDT, [facility], 1 tablet By Mouth Daily, 168.2, [...] Weight Start Date: 04/06/21 Status: Ordered Pen [place], 31 G x 5 mm BD Ultra [...]
--- OUTSIDE RECORDS SUMMARY | 2023-09-22 07:58 | XMS_ITS | Continuity of Care Document ---
Author Organization [facility] Diabetes Address [address] [place] [address]- Care Team Providers Care General Education Professor Name Role Phone Gerry Nunez MD Primary Care Physician [facility]): 11/08/19 - 01/05/20 [facility] Endocr[facility]ology and Diabetes [address] [place] [address] [facility] Attending Physician: Juan Ramírez MD Admitting Physician: [...] mL, 5 Refills, Maintenance, 03/14/19 8:16:00 EST, [facility]/pharmacy #[id number], new order, 168.8, cm, 02/20/19 13:48:00 EST, Height, 98.2, kg, 02/20/19 13:47:00 EST, Dry Weight Start Date: 03/14/19 Status: Ordered atorvastatin 80 mg oral tablet 1 tablet, By Mouth, Daily, Please schedule a follow up appointment with endocrinology for further refills, # 30 tablet, 1 Refills, Maintenance, 12/05/19 5:07:00 EDT, [facility]/pharmacy #1026, 168.2, cm, 03/20/19 15:27:00 EST, [...] tablet, 0 Refills, Maintenance, 12/17/19 9:04:00 EDT, [facility], 168.2, cm, 03/20/19 15:27:00 [...] tablet, 3 Refills, Maintenance, 08/06/19 15:10:00 EDT, [facility]/pharmacy#1026, 1 tablet By Mouth Daily, 168.2, cm, [...]
--- OUTSIDE RECORDS SUMMARY | 2023-09-22 07:58 | XMS_ITS | Continuity of Care Document ---
Author Organization [facility] Address [address] [place] [address]- Care Team Providers Care Salt Lifter Name Role Phone Mayra HEARN, Gerry Beaver Primary Care Physician [facility]s): 02/01/21 - 04/01/21 [facility] [address] [place], [place] [address] Attending Physician: Not on Staff, Attending MD [...] 15 Unknown, 1 Refills, 01/14/21 9:48:00 EDT, [facility]/pharmacy #1026, 168.2, cm, 01/14/21 9:03:00 EDT, Height, 104.1, kg, 03/20/19 15:27:00 EST, Dry Weight Start Date: 01/14/21 Status: Ordered atorvastatin 80 mg oral tablet 1 tablet, By Mouth, Daily, Please schedule a follow up appointment with endocrinology for further refills, # 30 tablet, 1 Refills, Maintenance, 12/05/19 5:07:00 EDT, [facility]/pharmacy #1026, 168.2, cm, 03/20/19 15:27:00 EST, [...] tablet, 0 Refills, Maintenance, 12/17/19 9:04:00 EDT, [facility]/pharmacy #1026, 168.2, cm, 03/20/19 15:27:00 EST, Height, 104.1, kg, 03/20/19 15:27:00 EST, Dry Weight Start Date: 12/17/19 Status: Ordered doxycycline hyclate 100 mg oral tablet 1 capsule, By Mouth, Every 12 hours, for 10 days, # 20 capsule, 0 Refills, Acute 04/09/21 21:26:00 EST, 03/30/21 21:26:00 EST, Capsule, [facility]/pharmacy #1026, Partial fill upon patient request if the prescription is for a schedule II opioid drug., 168.2,... Start Date: 03/30/21 Stop Date: 04/09/21 Status: Ordered Freestyle Lancets See Instructions, # [...] 0 Refills, Maintenance, 01/29/21 10:52:00 EST, Solution, [facility]/pharmacy #1026, Partial fill upon patient request ifthe [...]
--- OUTSIDE RECORDS SUMMARY | 2023-09-22 07:58 | XMS_ITS | Continuity of Care Document ---
Author Organization [facility] Address [address] [place] [address]- Care Team Providers Care Carpenter'S Helper Name Role Phone Mayra HEARN, Gerry Beaver Primary Care Physician [facility] 05/08/19 - 07/03/19 [facility] [address] [place] [address]- [facility] Attending Physician: Rolando Omer MD Admitting Physician: [...] 6 Refills, Maintenance, 03/20/19 16:21:00 EST, Tablet, [id number], 168.2, cm, 03/20/19 15:27:00 EST, [...] # 1 tablet, 0 Refills, Soft Stop, 06/04/19 10:00:00 EDT, Tablet,[facility]/pharmacy #1026, 168.2, cm, 03/20/19 15:27:00 EST, Height, 104.1, kg, 03/20/19 15:27:00 EST, DryWeight Start Date: 06/04/19 Status: Ordered Freestyle Lancets See Instructions, # [...] tablet, 1 Refills, Maintenance, 03/20/19 16:21:00 EST, [facility]/pharmacy#1026, 1 tablet By Mouth Daily, 168.2, [...]
--- OUTSIDE RECORDS SUMMARY | 2023-09-22 07:58 | XMS_ITS | Continuity of Care Document ---
Author Organization [facility] Address [address] [place] [address]- Care Team Providers Care Upstream Biomanufacturing Technician Name Role Phone Mayra HEARN, Gerry Beaver Primary Care Physician [facility]s): 05/18/20 - 06/17/20 [facility] Diabetes [address] [place] [address] Attending Physician: AdmChris maurer Admitting Physician: AdmtrChris Referring Physician: Admtr, Ar8 Allergies, Adverse Reactions, [...] 15 Unknown, 1 Refills, Maintenance, [facility], 168.2, cm, 01/09/20 8:57:00 EDT, Height, 104.1, kg, 03/20/19 15:27:00 EST, Dry Weight Start Date: 03/05/20 Status: Ordered atorvastatin 80 mg oral tablet 1 tablet, By Mouth, Daily, Please schedule a follow up appointment with endocrinology for further refills, # 30 tablet, 1 Refills, Maintenance, 12/05/19 5:07:00 EDT, [facility]/pharmacy #1026, 168.2, cm, 03/20/19 15:27:00 EST, Height, [...] tablet, 0 Refills, Maintenance, 12/17/19 9:04:00 EDT, [facility]/pharmacy #1026, 168.2, cm, 03/20/19 15:27:00 EST, Height, 104.1, kg, 03/20/19 15:27:00 EST, Dry Weight Start Date: 12/17/19 Status: Ordered Diflucan 150 mg oral tablet 1 tablet = 150 mg, By Mouth, Once, # 1 tablet, 0 Refills, Soft Stop, 07/05/19 14:30:00 EDT, Tablet,[facility]/pharmacy #1026, 168.2, cm, 03/20/19 15:27:00 EST, Height, [...]
--- OUTSIDE RECORDS SUMMARY | 2023-09-22 07:58 | XMS_ITS | Continuity of Care Document ---
Author Organization [facility] Address [address] [place] [address]- Care Team Providers Care Core Layer Machine Operator Name Role Phone Gerry Nunez MD Primary Care Physician [place] [facility] [place] 02/26/21 - 04/17/21 [facility] [address] [place] [address]- Attending Physician: Rolando Omer MD Admitting Physician: Rolando Omer MD Referring Physician: Gerry Nunez MD Allergies, [...] 1 Refills, 01/14/21 9:48:00 EDT, [facility]/pharmacy #1026, 168.2, cm, 01/14/21 9:03:00 EDT, Height, [...] Dry Weight Start Date: 12/17/19 Status: Ordered dulaglutide 1.5 mg/0.5 mL subcutaneous solution 0.5 mL = 1.5 mg, Subcutaneous Injection, Every week, rotate injection sites, # 2 mL, 4 Refills, Maintenance, 04/06/21 8:28:00 EST, Solution, [facility]/pharmacy #1026, note dose increase, 168.2, cm, 04/06/21 [...] Date: 01/14/21 Stop Date: 05/14/21 Status: Ordered naproxen 500 mg oral tablet [...] Weight Start Date: 04/06/21 Status: Ordered Pen [place], 31 G x 5 mm BD Ultra Fine III See Instructions, # 100 each, Refills 5, Tot. Refills 5, Maintenance, use as directed for Type 2 Diabetes Mellitus, 04/15/21 10:31:00 EST, Supply, 168.2, cm, 04/15/21 8:37:00 EST, Height, 85.3, kg, 03/30/21 21:26:00 EST, Dry Weight Start Date: 04/15/21 Stop Date: 10/12/21 Status: Ordered tslim and dexcom g6 tslim and dexcom g6, Refills 0, Maintenance, 04/13/18 14:35:10 EST, Compound Start Date: 04/13/18 Status: Ordered Problem List Condition Effective Dates Status Health Status Inform ant Back pain(Confirmed) Active Childhood obesity(Confirmed) Active Diabetes Mellitus(Confirmed) 10/25/11 Active Essential hypertension(Confirmed) Active Hyperlipidemia LDL goal < 100(Confirmed) Active Obese class I(Confirmed) Active Social History Social History Type Response Smoking Status Never smoker entered on: 02/22/17 Sex
--- OUTSIDE RECORDS SUMMARY | 2023-09-22 07:58 | XMS_ITS | Continuity of Care Document ---
Author Organization [facility] Address [address] [place] [address]- Care Team Providers Care Fixture Relamper Name Role Phone Sanjeev Marie DO Primary Care Physician [facility]): 08/20/21 - 09/29/21 [facility] [address] [place] [address]- Attending Physician: Not on Staff, Attending MD [...] 1 Refills, 01/14/21 9:48:00 EDT, [facility]/pharmacy #1026, 168.2, cm, 01/14/21 9:03:00 EDT, Height, [...] 30 tablet, 3 Refills, 07/20/21 15:42:00 EDT, [facility] 168.2, cm, 07/02/21 9:27:00 EDT, Height, 85.3, [...] Stop 03/28/22 16:24:00 EST, 09/29/21 16:24:00 EDT, [facility], 168.2, cm, 08/16/21 16:33:00 EDT, Height, 85.3, kg, 03/30/21 21:26:00 EST, Dry Weight Start Date: 09/29/21 Stop Date: 03/28/22 Status: Ordered dulaglutide 1.5 mg/0.5 mL subcutaneous solution 0.5 mL = 1.5 mg, Subcutaneous Injection, Every week, rotate injection sites, # 2 mL, 4 Refills, Maintenance, 04/06/21 8:28:00 EST, Solution, [facility]/pharmacy #1026, note dose increase, 168.2, cm, 04/06/21 [...] each, 1 Refills, Maintenance, 09/28/21 16:00:00 EDT, [facility], 1 tablet By Mouth Daily, 168.2, [...] Weight Start Date: 04/06/21 Status: Ordered Pen [place], 31 G x 5 mm BD Ultra [...]
--- OUTSIDE RECORDS SUMMARY | 2023-09-22 07:59 | XMS_ITS | Continuity of Care Document ---
Author Organization [facility] Address [address] [place] [address]- Care Team Providers Care Cardroom Drawing Runner Name Role Phone Sanjeev Marie DO Primary Care Physician [facility] Date[facility]): 03/10/22 - 05/13/22 [facility] [address] [place] [address]- Attending Physician: Rolanod Omer MD Admitting Physician: Rolando Omer MD [...] tablet, 3 Refills, Maintenance, 01/07/22 11:53:00 EDT, [facility], 168.2, cm, 08/16/21 16:33:00 EDT, Height, 85.3,kg, [...] Refills, Maintenance, 04/06/21 8:28:00 EST, Solution, [facility]/pharmacy #[id number], note dose increase, 168.2, [...] kit, 5Refills, Soft Stop, 04/08/22 13:16:00 EST, [facility]., 168.2, cm, 08/16/21 16:33:00EDT, Height, 85.3, [...] tablet, 1 Refills, Maintenance, 04/08/22 13:16:00 EST, [facility]., 30, 1 tablet By Mouth Daily, [...] tablet, 3 Refills, Maintenance, 04/08/22 13:15:00 EST, [facility] 168.2, cm, 08/16/21 16:33:00 EDT, [...] Weight Start Date: 04/06/21 Status: Ordered Pen [place], 31 G x 5 mm BD Ultra [...] pediatric endocrinology since 2016. Dr. Castaneda, Peds, [facility], started pt on medcation as supplement to 80 mg Atorvastatin. Social History Social History Type Response Smoking Status Never smoker entered on: 02/22/17 Sex Patient Care team information Care Team Personnel Name: Sanjeev Marie DO Position: S Resident Member Role: PCP Address: Address: [address] [place] [address]- Care Team Related Persons Name: LAURIE MARTIN Address: home [address] [place] [id number]
--- OUTSIDE RECORDS SUMMARY | 2023-09-22 07:59 | XMS_ITS | Continuity of Care Document ---
Author Organization [facility] Address [address] [place] [address]- Care Team Providers Care Head Baggage Porter Name Role Phone Mayra HEARN, Gerry Beaver Primary Care Physician [facility] Date[facility]s): 06/04/19 - 06/14/19 [facility] [address] [place] [address]- [facility] Attending Physician: Chris Cardona Admitting Physician: AdmChris [...] 0 Refills, Soft Stop, 06/04/19 10:00:00 EDT, Tablet,[facility]/pharmacy #[id number], 168.2, cm, 03/20/19 15:27:00 EST, [...] tablet, 1 Refills, Maintenance, 03/20/19 16:21:00 EST, [facility]/pharmacy#[id number], 1 tablet By Mouth Daily, 168.2, [...] Date: 02/20/19 Stop Date: 06/20/19 Status: Ordered Monistat 7 2% cream with applicator See Instructions, apply BID to penile rash x 1 week, # 45 Gm, 0 Refills, Acute 06/18/19 10:01:00 EDT, 06/04/19 10:00:00 EDT, [facility]/pharmacy #[id number], apply BID to penile rash x 1 week, 168.2, cm, 03/20/2014:27:00 EST, Height, 104.1, kg, 03/20/19 15:27:00... Start Date: 06/04/19 Stop Date: 06/18/19 Status: Ordered OneTouch Verio Test Strips See [...]
--- OUTSIDE RECORDS SUMMARY | 2023-09-22 07:59 | XMS_ITS | Continuity of Care Document ---
Author Organization [facility] Address [address] [place] [address]- Care Team Providers Care Overlock Sewing Machine Operator Name Role Phone Sanjeev Marie DO Primary Care Physician Encounter [facility] Date(s): 05/26/21 - 09/23/21 [facility] [address] [place] [address] Attending Physician: Radha Duran MD Admitting Physician: Radha Duran MD Referring Physician: Gerry Nunez MD Allergies, [...] 15 Unknown, 1 Refills, 01/14/21 9:48:00 EDT, [facility]/pharmacy #[id number], 168.2, cm, 01/14/21 9:03:00 EDT, Height, [...] 30 tablet, 3 Refills, 07/20/21 15:42:00 EDT, [facility], 168.2, cm, 07/02/21 9:27:00 EDT, Height, [...] AN APPT*., # 180 tablet, 0 Refills, [facility] STORE [id number], 168.2, cm, 04/27/21 10:25:00 EST, Height, 85.3, kg, 03/30/21 21:26:00 EST, Dry Weight Start Date: 06/20/21 Status: Ordered dulaglutide 1.5 mg/0.5 mL subcutaneous solution 0.5 mL = 1.5 mg, Subcutaneous Injection, Every week, rotate injection sites, # 2 mL, 4 Refills, Maintenance, 04/06/21 8:28:00 EST, Solution, [facility]/pharmacy #[id number], note dose increase, 168.2, cm, 04/06/21 [...] each, 3 Refills, Maintenance, 07/20/21 15:42:00 EDT, [facility], 1 tablet By Mouth Daily, 168.2, [...] Weight Start Date: 04/06/21 Status: Ordered Pen [place], 31 G x 5 mm BD Ultra [...]
--- OUTSIDE RECORDS SUMMARY | 2023-09-22 07:59 | XMS_ITS | Continuity of Care Document ---
Author Organization [facility] Address [address] [place] [address]- Care Team Providers Care Seed Yeast Operator Name Role Phone Mayra HEARN, Gerry R Primary Care Physician [facility] Date[facility]s): 06/04/19 - 06/11/19 [facility] [address] [place] [address]- [facility] Attending Physician: Dirk HEARN, Marek Alcala Admitting Physician: Negra HEARN, Rolando Mccauley Allergies, Adverse Reactions, Alerts Substance Reaction Severity [...] 0 Refills, Soft Stop, 06/04/19 10:00:00 EDT, Tablet,[facility]/pharmacy #[id number], 168.2, cm, 03/20/19 15:27:00 EST, [...] tablet, 1 Refills, Maintenance, 03/20/19 16:21:00 EST, [facility], 1 tablet By Mouth Daily, 168.2, [...] Acute 06/18/19 10:01:00 EDT, 06/04/19 10:00:00 EDT, [facility]/pharmacy #1026, apply BID to penile rash x [...]
--- OUTSIDE RECORDS SUMMARY | 2023-09-22 07:59 | XMS_ITS | Continuity of Care Document ---
Author Organization [facility] Address [address] [place] [address]- Care Team Providers Care Corn Press Operator Name Role Phone Mayra HEARN, Gerry Beaver Primary Care Physician [facility] Date(s): 03/30/21 - 03/30/[address] [address]- Encounter Diagnosis Testicular pain(Final) - 03/30/21 Discharge Disposition: A-D/C Home Attending Physician: Janett Meléndez MD Admitting Physician: Janett Meléndez MD Referring Physician: Not on Staff, Referring MD [...] 15 Unknown, 1 Refills, 01/14/21 9:48:00 EDT, [facility]/pharmacy #[id number], 168.2, cm, 01/14/21 9:03:00 EDT, Height, 104.1, kg, 03/20/19 15:27:00 EST, Dry Weight Start Date: 01/14/21 Status: Ordered atorvastatin 80 mg oral tablet 1 tablet, By Mouth, Daily, Please schedule a follow up appointment with endocrinology for further refills, # 30 tablet, 1 Refills, Maintenance, 12/05/19 5:07:00 EDT, [facility]/pharmacy #[id number], 168.2, cm, 03/20/19 15:27:00 [...] tablet, 0 Refills, Maintenance, 12/17/19 9:04:00 EDT, [facility]/pharmacy #1026, 168.2, cm, 03/20/19 15:27:00 EST, Height, 104.1, kg, 03/20/19 15:27:00 EST, Dry Weight Start Date: 12/17/19 Status: Ordered doxycycline hyclate 100 mg oral tablet 1 capsule, By Mouth, Every 12 hours, for 10 days, # 20 capsule, 0 Refills, Acute 04/09/21 21:26:00 EST, 03/30/21 21:26:00 EST, Capsule, [facility]/pharmacy #1026, Partial fill upon patient [...] tablet, 3 Refills, Maintenance, 01/14/21 9:48:00 EDT, [facility]/pharmacy #1026, 168.2, cm, 01/14/21 9:03:00 [...] 0 Refills, Maintenance, 01/29/21 10:52:00 EST, Solution, [facility]/pharmacy #1026, Partial fill upon patient [...] to oldest [Reference Range]: 1 2 3 Weight 85.3 kg (03/30/21 9:26 PM) 85.3 kg (03/30/21 6:46 PM) Oxygen Saturation [94-100 %] 100 % (03/30/21 9:26 PM) 99 % (03/30/21 6:46 PM) 100 % (03/30/21 6:40 PM) Pulse Rate [55-90 bpm] 95 bpm *H* (03/30/21 9:26 PM) 110 bpm *H* (03/30/21 6:46 PM) 126 bpm *H* (03/30/21 6:40 PM) Blood Pressure [90-138/55-84 mm Hg] 139/84mm Hg *H* (03/30/21 9:26 PM) 163/104mm Hg *H* (03/30/21 6:46 PM) Respiratory Rate [16-30 br/min] 18 br/min (03/30/21 6:46 PM) Temperature [96.8-100.4 DegF] 97.9 DegF (03/30/21 6:46 PM) Mode of Delivery (Oxygen) Room air (03/30/21 9:26 PM) Room air (03/30/21 6:46 PM) Room air (03/30/21 6:40 PM) Blood pressure sites Arm, left (03/30/21 9:26 PM) Arm, right (03/30/21 6:46 PM) Temperature Route Oral (03/30/21 6:46 PM) Dry Weight 85.3 kg (03/30/21 9:26 PM) 85.3 kg (03/30/21 6:46 PM) Weight Obtained Via Standing scale (03/30/21 6:46 PM) Dry Weight Obtained Via Standing scale (03/30/21 6:46 PM) Social History Social History Type Response Smoking Status Never smoker entered on: 02/22/17 Sex
--- OUTSIDE RECORDS SUMMARY | 2023-09-22 07:59 | XMS_ITS | Continuity of Care Document ---
Author Organization [facility] Address [address] [place] [address]- Care Team Providers Care Dieing Out Machine Operator Name Role Phone Mayra HEARN, Gerry Beaver Primary Care Physician [phone] [facility] Date(s): 05/27/21 - 06/26/[address] [address]- Attending Physician: Chris Cardona Admitting Physician: Chris [...] 15 Unknown, 1 Refills, 01/14/21 9:48:00 EDT, [facility]/pharmacy #1026, 168.2, cm, 01/14/21 9:03:00 EDT, Height, 104.1, kg, 03/20/19 15:27:00 EST, Dry Weight Start Date: 01/14/21 Status: Ordered atorvastatin 80 mg oral tablet 1 tablet, By Mouth, Daily, NEED FOLLOW UP APPT., # 30 tablet, 1 Refills, [facility] STORE [id number], 168.2, cm, 04/27/21 10:25:00 EST, Height, 85.3, [...] # 180 tablet, 0 Refills, [facility], 168.2, cm, 04/27/21 10:25:00 EST, Height, 85.3, kg, 03/30/21 21:26:00 EST, Dry Weight Start Date: 06/20/21 Status: Ordered dulaglutide 1.5 mg/0.5 mL subcutaneous solution 0.5 mL = 1.5 mg, Subcutaneous Injection, Every week, rotate injection sites, # 2 mL, 4 Refills, Maintenance, 04/06/21 8:28:00 EST, Solution, [facility]/pharmacy #1026, note dose increase, 168.2, cm, [...] tablet, 3 Refills, Maintenance, 04/27/21 10:50:00 EST, [facility]/pharmacy #1026, 168.2, cm, 04/27/21 10:25:00 EST, Height, 85.3, kg, 03/30/21 21:26:00 EST, Dry Weight Start Date: 04/27/21 Stop Date: 08/25/21 Status: Ordered naproxen 500 mg oral tablet 1 tablet = 500 mg, By Mouth, 2 times a day, # 60 tablet, 0 Refills, Maintenance, 04/15/21 9:41:00 EST, Tablet, [facility]/pharmacy #1026, Partial fill upon patient request if the prescription is for a schedule II opioid drug., 168.2, cm, 04/15/21 8:37:00 EST... Start Date: 04/15/21 Status: Ordered NovoLOG FlexPen 100 units/mL subcutaneous solution See Instructions, INJECT 10-20 UNITS SUBCUTANEOULSY WITH MEALS, # 15 mL, 4 Refills, Maintenance, 04/06/21 8:32:00 EST, [facility]/pharmacy #1026, dispense formulary equivalent, 168.2, cm, 04/06/21 8:12:00 EST, Height, 85.3, kg, 03/30/21 21:26:00 EST, Dry Weight Start Date: 04/06/21 Status: Ordered Pen [place], 31 G x 5 mm BD Ultra [...]
--- OUTSIDE RECORDS SUMMARY | 2023-09-22 07:59 | XMS_ITS | Continuity of Care Document ---
Author Organization [facility] Address [address] [place] [address]- Care Team Providers Care Case Reviewer Name Role Phone Mayra HEARN, Gerry Beaver Primary Care Physician [facility] Date[facility]s): 05/14/21 - 06/13/21 [facility] [address] [place] [address]- Attending Physician: Chris Cardona Admitting Physician: Chris [...] 15 Unknown, 1 Refills, 01/14/21 9:48:00 EDT, [facility]/pharmacy #1026, 168.2, cm, 01/14/21 9:03:00 EDT, Height, 104.1, kg, 03/20/19 15:27:00 EST, Dry Weight Start Date: 01/14/21 Status: Ordered atorvastatin 80 mg oral tablet 1 tablet, By Mouth, Daily, Please schedule a follow up appointment with endocrinology for further refills, # 30 tablet, 1 Refills, Maintenance, 04/27/21 10:49:00 EST, [facility]/pharmacy #1026, 168.2, cm, 04/27/21 10:25:00 EST, [...] tablet, 0 Refills, Maintenance, 04/27/21 10:49:00 EST, [facility]/pharmacy #1026, 168.2, cm, 04/27/21 10:25:00 EST,Height, 85.3, kg, 03/30/21 21:26:00 EST, Dry Weight Start Date: 04/27/21 Status: Ordered dulaglutide 1.5 mg/0.5 mL subcutaneous solution 0.5 mL = 1.5 mg, Subcutaneous Injection, Every week, rotate injection sites, # 2 mL, 4 Refills, Maintenance, 04/06/21 8:28:00 EST, Solution, [facility]/pharmacy #1026, note dose increase, 168.2, cm, [...] each, 3 Refills, Maintenance, 04/27/21 10:49:00 EST, [facility]/pharmacy #1026, 1 tablet By Mouth Daily, [...] 0 Refills, Maintenance, 04/15/21 9:41:00 EST, Tablet, [facility]/pharmacy #1026, Partial fill upon patient request [...] Weight Start Date: 04/06/21 Status: Ordered Pen [place], 31 G x 5 mm BD Ultra [...]
--- OUTSIDE RECORDS SUMMARY | 2023-09-22 07:59 | XMS_ITS | Continuity of Care Document ---
Author Organization [facility] Address [address] [place] [address]- Care Team Providers Care Operations Specialists Name Role Phone Mayra HEARN, eGrry Beaver Primary Care Physician [phone] [facility] Date[facility]s): 04/16/21 - 05/16/21 [facility] [address] [place] [address]- Allergies, Adverse Reactions, Alerts Substance Reaction Severity [...] 15 Unknown, 1 Refills, 01/14/21 9:48:00 EDT, [facility]/pharmacy #1026, 168.2, cm, 01/14/21 9:03:00 EDT, Height, 104.1, kg, 03/20/19 15:27:00 EST, Dry Weight Start Date: 01/14/21 Status: Ordered atorvastatin 80 mg oral tablet 1 tablet, By Mouth, Daily, Please schedule a follow up appointment with endocrinology for further refills, # 30 tablet, 1 Refills, Maintenance, 04/27/21 10:49:00 EST, [facility]/pharmacy #1026, 168.2, cm, 04/27/21 [...] tablet, 0 Refills, Maintenance, 04/27/21 10:49:00 EST, [facility]/pharmacy #1026, 168.2, cm, 04/27/21 10:25:00 EST,Height, 85.3, kg, 03/30/21 21:26:00 EST, Dry Weight Start Date: 04/27/21 Status: Ordered dulaglutide 1.5 mg/0.5 mL subcutaneous solution 0.5 mL = 1.5 mg, Subcutaneous Injection, Every week, rotate injection sites, # 2 mL, 4 Refills, Maintenance, 04/06/21 8:28:00 EST, Solution, [facility]/pharmacy #1026, note dose increase, [...] 5x per day. E10.9. 30 day supply, 10/30/20 10:25:00 EDT, Compound, 168.2, cm, 01/09/20 8:57:00 [...] 0 Refills, Maintenance, 04/15/21 9:41:00 EST, Tablet, [facility]/pharmacy #1026, Partial fill upon [...] Weight Start Date: 04/06/21 Status: Ordered Pen [place], 31 G x 5 mm BD Ultra [...]
--- OUTSIDE RECORDS SUMMARY | 2023-09-22 07:59 | XMS_ITS | Continuity of Care Document ---
Author Organization [facility] Address [address] [place] [address]- Care Team Providers Care Filter Filler Name Role Phone Sanjeev Marie DO Primary Care Physician Encounter [facility] Date(s): 03/11/22 - 05/12/22 [facility] [address] [place] [address]- Attending Physician: Radha Duran MD Admitting Physician: Radha Duran MD Referring Physician: Sanjeev Marie DO Allergies, Adverse Reactions, Alerts Substance Reaction Severity [...] 15 Unknown, 1 Refills, 01/14/21 9:48:00 EDT, [facility]/pharmacy #1026, 168.2, cm, 01/14/21 9:03:00 [...] tablet, 3 Refills, Maintenance, 01/07/22 11:53:00 EDT, [facility], 168.2, cm, 08/16/21 16:33:00 EDT, Height, 85.3,kg, [...] 4 Refills, Maintenance, 04/06/21 8:28:00 EST, Solution, [facility]/pharmacy #1026, note dose increase, 168.2, [...] kit, 5Refills, Soft Stop, 04/08/22 13:16:00 EST, [facility]., 168.2, cm, 08/16/21 16:33:00EDT, Height, 85.3, [...] tablet, 1 Refills, Maintenance, 04/08/22 13:16:00 EST, [facility]., 30, 1 tablet By Mouth [...] Refills, Maintenance, 04/08/22 13:15:00 EST, [facility] 168.2, cm, 08/16/21 16:33:00 EDT, [...] Weight Start Date: 04/06/21 Status: Ordered Pen [place], 31 G x 5 mm BD Ultra [...] endocrinology since 2016. Dr. Castaneda, Peds, [facility], started pt on medcation as supplement to 80 mg Atorvastatin. Social History Social History Type Response Smoking Status Never smoker entered on: 02/22/17 Sex Patient Care team information Care Team Personnel Name: Sanjeev Marie DO Position: S Resident Member Role: PCP Address: Address: [address] [facility] [place] [address]- Care Team Related Persons Name: LAURIE MARTIN Address: home [address] [place] [id number]
--- OUTSIDE RECORDS SUMMARY | 2023-09-22 07:59 | XMS_ITS | Continuity of Care Document ---
Author Organization [facility] Address [address] [place] [address]- Care Team Providers Care Extruding Press Adjuster Name Role Phone Mayra HEARN, Gerry Beaver Primary Care Physician [facility] Date[facility]s): 07/12/19 - 07/19/19 [facility] [address] [place] [address]- [facility] Attending Physician: Avni Castaneda MD Allergies, Adverse Reactions, Alerts Substance Reaction [...] mL, 5 Refills, Maintenance, 03/14/19 8:16:00 EST, [facility]/pharmacy #[id number], new order, 168.8, cm, 02/20/19 13:48:00 EST, Height, 98.2, kg, 02/20/19 13:47:00 EST, Dry Weight Start Date: 03/14/19 Status: Ordered atorvastatin 80 mg oral tablet 1 tablet = 80 mg, By Mouth, Daily, # 30 tablet, 6 Refills, Maintenance, 03/20/19 16:21:00 EST, Tablet, [facility]/pharmacy #1026, 168.2, cm, [...]
--- OUTSIDE RECORDS SUMMARY | 2023-09-22 07:59 | XMS_ITS | Continuity of Care Document ---
Author Organization [facility] Address [address] [place] [address]- Care Team Providers Care Sales Contract Administrator Name Role Phone Sanjeev Marie DO Primary Care Physician [facility] Date[facility]s): 12/15/21 - 01/14/22 [facility] [address] [place] [address]- Attending Physician: Chris Cardona Admitting Physician: AdmChris [...] Unknown, 1 Refills, 01/14/21 9:48:00 EDT, [facility]/pharmacy #1026, 168.2, cm, 01/14/21 9:03:00 EDT, [...] tablet, 3 Refills, Maintenance, 01/07/22 11:53:00 EDT, [facility], 168.2, cm, 08/16/21 16:33:00 EDT, Height, 85.3,kg, [...] Stop 03/28/22 16:24:00 EST, 09/29/21 16:24:00 EDT, [facility], 168.2, cm, 08/16/21 16:33:00 EDT, Height, 85.3, kg, 03/30/21 21:26:00 EST, Dry Weight Start Date: 09/29/21 Stop Date: 03/28/22 Status: Ordered dulaglutide 1.5 mg/0.5 mL subcutaneous solution 0.5 mL = 1.5 mg, Subcutaneous Injection, Every week, rotate injection sites, # 2 mL, 4 Refills, Maintenance, 04/06/21 8:28:00 EST, Solution, [facility]/pharmacy #1026, note dose increase, 168.2, cm, [...] tablet, 1 Refills, Maintenance, 01/06/22 17:30:00 EDT, [facility], TAKE 1 TABLET BY MOUTH EVERY [...] Weight Start Date: 04/06/21 Status: Ordered Pen [place], 31 G x 5 mm BD Ultra [...] pediatric endocrinology since 2016. Dr. Castaneda, Peds[facility], started pt on medcation as supplement to 80 mg Atorvastatin. Social History Social History Type Response Smoking Status Never smoker entered on: 02/22/17 Sex Patient Care team information Personnel Name: Sanjeev Marie DO Address: Address: [address] [place] [address]
--- OUTSIDE RECORDS SUMMARY | 2023-09-22 07:59 | XMS_ITS | Continuity of Care Document ---
Author Organization [facility] Address [address] [place] [address]- Care Team Providers Care Pizza Hut Assistant Name Role Phone Sanjeev Marie DO Primary Care Physician ( [phone] [facility]counter [facility] Date(s): 07/04/22 - 08/03/22 [facility] [address] [place] [address]- Allergies, Adverse Reactions, Alerts Substance Reaction Severity [...] 15 Unknown, 1 Refills, 01/14/21 9:48:00 EDT, [facility]/pharmacy #1026, 168.2, cm, 01/14/21 9:03:00 EDT, [...] tablet, 0 Refills, Maintenance, 07/04/22 15:04:00 EDT, [facility], 168.2, cm, 08/16/21 16:33:00 EDT, Height, 85.3, [...] 4 Refills, Maintenance, 04/06/21 8:28:00 EST, Solution, [facility]/pharmacy #1026, note dose increase, 168.2, cm, [...] kit, 5Refills, Soft Stop, 04/08/22 13:16:00 EST, [facility]., 168.2, cm, 08/16/21 16:33:00EDT, Height, 85.3, [...] tablet, 0 Refills, Maintenance, 07/04/22 15:01:00 EDT, [facility], 1 tablet By Mouth Daily,x90 days, 168.2, [...] tablet, 0 Refills, Maintenance, 07/04/22 15:00:00 EDT, [facility]., 168.2, cm, 08/16/21 16:33:00 EDT, Height, 85.3, kg, 03/30/21 21:26:00 EST, Dry Weight Start Date: 07/04/22 Stop Date: 10/02/22 Status: Ordered naproxen 500 mg oral tablet 1 tablet = 500 mg, By Mouth, 2 times a day, # 60 tablet, 0 Refills, Maintenance, 04/15/21 9:41:00 EST, Tablet, [facility]/pharmacy #[id number], Partial fill upon patient request [...] Weight Start Date: 04/06/21 Status: Ordered Pen [place], 31 G x 5 mm BD Ultra [...] pediatric endocrinology since 2016. Dr. Castaneda, Peds, [facility], started pt on medcation as supplement to 80 mg Atorvastatin. Social History Social History Type Response Smoking Status Never smoker entered on: 02/22/17 Sex Patient Care team information Care Team Personnel Name: Sanjeev Marie DO Position: S Resident Member Role: PCP Address: Address: [address] [facility] [address]- Care Team Related Persons Name: LAURIE MARTIN Address: home [address] [place] [address]
[2023-09-22 08:10] LABS: Bacteria Urine Trace (None Seen); Hyaline Casts Urine 0-2 /LPF (0-2); RBC Urine 0-2 /HPF (0-2); Squamous Epithelial Cell Urine 0-2 /HPF (0-2); UACC Culture Trigger YES
[2023-09-22 08:44] LABS: Glucose, Whole Blood 289 mg/dL (60-115)
[2023-09-22 08:56] VITALS: BP 143/97; PULSE 98; RESP 18; TEMP 36.7; O2SAT 100
== END 2023-09-22 08:59 | disposition home or self-care (01) ==
PROVIDERS: Emergency Provider Emergency Medicine
DX: E10.65 Type 1 diabetes mellitus with hyperglycemia (principal); Z91.148 Patient's other noncompliance with medication regimen for other reason
CPT/HCPCS: 36415; 80048; 80076; 81001; 82803; 82947; 83690; 83735; 85025; 87086; 96374; 99284; J7120